=== PATIENT | male | born 1940 | race Caucasian/White ===

== ENCOUNTER 2016-09-05 12:42 | Emergency (ER) | payer MEDICARE, BC ==
[~2016-09-05] VITALS: Ht 179.1 cm; Wt 92.4 kg
[~2016-09-05 12:42] MED LIST: ASPI81TA11 PO; ATEN-100 PO; ATOR20TA42 PO; AVOD0.5C PO; CIAL5TAB PO; COQ1200C3 PO; NIAC500T34 PO; NITR.3 SL; SALMON OIL PO; TAB-TAB PO; TAMS0.4C67 PO
[2016-09-05 12:56] VITALS: BP 122/70; PULSE 68; RESP 16; TEMP 98.3; O2SAT 97
[2016-09-05] MEDS ORDERED: MULT400T PO (13:06)
[2016-09-05] MEDS ORDERED: FINA5TAB2 PO (13:06)
[2016-09-05] MEDS ORDERED: TAMS0.4C4 PO (13:06)
[2016-09-05] MEDS ORDERED: TETANUS/DIPHTHERIA TOXOID ADULT 0.5 ML VIAL IM ONE (13:15)
--- NOTE | 2016-09-05 13:37 | PD ---
HPI Chief Complaint: Laceration/Skin Injury Time Seen by Provider: 13:37 Travel History International Travel<30 days: No Contact w/Intl Traveler<30days: No Traveled to known affect area: No History of Present Illness HPI 76-year-old right-hand dominant male presents to the ED for evaluation of laceration of the right hand. Sustained just before presentation. 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 On presentation he endorses 4/10 pain , mild numbness and limitations to range of motion. He is unsure of the date of his last tetanus immunization. He takes 2 baby aspirin daily. PFSH Past Medical History Hx Anticoagulant Therapy: Yes (162mg asa) Blood Disorders: No Cancer: No Cardiovascular Problems: Yes (a-fib, NM) High Cholesterol: Yes Chest Pain: Yes Congestive Heart Failure: No Coronary Artery Disease: Yes Diabetes: No Endocrine: No Genitourinary: Yes (BPH) Hepatitis: No Hiatal Hernia: No Immune Disorder: No Medical other: Yes (bph arthritis) Neurologic: No Psychiatric: No Respiratory: No Thyroid Disease: No Past Surgical History Abdominal Surgery: No Cardiac Surgery: Yes (single by-pass 2000) Coronary Artery Bypass Graft: Yes (X 1) Ear Surgery: No Endocrine Surgery: No Eye Surgery: No Genitourinary Surgery: Yes (LITHOTRIPSY OF RENAL CALCULI) Gynecologic Surgery: No Oral Surgery: Yes (tonsillectomy) Pacemaker: No Thoracic Surgery: No Tonsillectomy: Yes Other Surgery: Yes Social History Alcohol Use: Yes (OCCASIONAL) Tobacco Use: No Substance Use: No Allergies-Medications (Allergen,Severity, Reaction): Coded Allergies: Morphine (Verified Allergy, Severe, Anaphylaxis, 09/05/16) Reported Meds & Prescriptions Reported Meds & Active Scripts Active Clindamycin (Clindamycin HCl) 300 Mg Cap 300 Mg PO Q6H 7 Days Reported Tamsulosin (Tamsulosin HCl) 0.4 Mg Cap Unknown Dose PO HS Finasteride 5 Mg Tab Unknown Dose PO DAILY Do not crush. Multaq (Dronedarone) 400 Mg Tab Unknown Dose PO BID Review of Systems Except as stated in HPI: all other systems reviewed are Neg Physical Exam Narrative GENERAL: Well-nourished, well-developed pleasant white male in no acute distress. SKIN: Focused skin assessment warm/dry. There is a 5 cm laceration over the posterior aspect of the right thumb, just distal to the metacarpal. The carpometacarpal joint is visible. There is complete transection of the extensor pollicis longus. The extensor pollicis brevis is intact. The radial artery is intact. Unable to identify the superficial branch of the radial nerve. HEAD: Normocephalic. EYES: No scleral icterus. No injection or drainage. NECK: Supple, trachea midline. No JVD or lymphadenopathy. CARDIOVASCULAR: Regular rate and rhythm without murmurs, gallops, or rubs. RESPIRATORY: Breath sounds equal bilaterally. No accessory muscle use. GASTROINTESTINAL: Abdomen soft, non-tender, nondistended. MUSCULOSKELETAL: No cyanosis, or edema. Focused right upper extremity exam: 2+ radial pulse. The thumb is resting in flexion. Patient is able to oppose each digit strongly. He is unable to extend the thumb. Cap refill less than 2 seconds, sensation intact to light touch distally. BACK: Nontender without obvious deformity. No CVA tenderness. Data Data Last Documented VS Vital Signs Date Time Temp Pulse Resp B/P Pulse Ox O2 Delivery O2 Flow Rate FiO2 09/05/16 16:23 98.1 64 18 169/95 98 Room Air Orders Tetanus/Diphtheria Tox Adult (Tetanus/Di (09/05/16 13:15) Finger ([id number]) (09/05/16 13:14) Ice/Cold Pack (09/05/16 13:14) Lidocaine 1% Inj (50 Ml) (Xylocaine 1% I (09/05/16 13:45) Oxycodone-Acetamin 5-325 Mg (Percocet (09/05/16 13:45) Cefazolin 2 Gm Premix (Ancef 2 Gm Premix (09/05/16 14:15) Sodium Chlorid 0.9% 500 Ml Inj (Ns 500 M (09/05/16 14:15) Bupivacaine-Epi Pf 0.5% Inj (Sensorcaine (09/05/16 15:00) Povidone Iodine 10% Oint (Betadine 10% O (09/05/16 18:15) MDM Medical Decision Making Medical Screen Exam Complete: Yes Emergency Medical Condition: Yes Differential Diagnosis laceration versus tendon injury versus fracture versus other Narrative Course 76-year-old right-hand dominant male presents to the ED for evaluation of laceration of the right hand. Sustained just before presentation. 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 On presentation he endorses 4/10 pain , mild numbness and limitations to range of motion. He is unsure of the date of his last tetanus immunization. Vitals reviewed. Physical exam reveals a pleasant white male in no acute distress. The thumb is resting of flexion. The patient is unable to extend the thumb. He has strong finger to thumb opposition on each digit. Cap refill less than 2 seconds. Sensation intact to light touch distally. There is a 5 cm laceration on the posterior aspect of the CMC joint of the right thumb. The MC joint is visible. There is complete transection of extensor pollicis longus. X-rays revealed advanced osteoarthritis without acute fracture or retained foreign body per radiology read. Laceration repair was performed. Please see my procedure note for details. I spoke with Dr. Adkins, on-call hand surgeon. He will come to the ED to perform the tendon repair. He requests that I administer 5-6 mL's of 0.5 % Marcaine with epinephrine in preparation for this procedure. Surgical consent was obtained. Dr. Adkins performed the procedure and applied the dressing/splint, please see his note for those details. Patient was prescribed 300 mg clindamycin 4 times a day 7 days. He is instructed to keep the arm in the splint, take the medication as prescribed, utilize OTC medications as needed for pain, follow-up with Dr. Adkins. He indicated understanding of the instructions and is agreeable to the care plan. He is stable and discharged home. Procedures Procedure Narrative LACERATION LOCATION: Dorsal aspect of the right thumb, just distal to the metacarpal. LENGTH: 5 cm NUMBER OF STITCHES/DENNIS: 6 horizontal mattress REPAIR: The area of the laceration was prepped with Betadine and sterilely draped. The laceration was infiltrated with 1% lidocaine. The wound was copiously irrigated and explored without evidence of foreign body. The CMC joint is visible. The extensor pollicis longus is completely transected in a transverse manner. The extensor pollicis brevis is intact. Unable to identify the superficial branch of the radial nerve. The wound was closed using 4-0 Prolene. This was a single layer repair. A sterile dressing was applied. The patient was advised to keep the dressing clean and dry. Patient tolerated the procedure well. Diagnosis Primary Impression: Laceration of thumb, right, with tendon involvement Qualified Code: S61.011A - Laceration of thumb, right, with tendon involvement , initial encounter Referrals: Katie Adkins MD Patient Instructions: General Instructions, Tendon Repair (DC) Additional Instructions: Rest, ice, elevate the extremity. Apply ice no longer than 10-15 minutes per hour a few times a day. Do not remove the splint for any reason. Take antibiotics as prescribed. Tylenol or Motrin as directed on the label as needed for pain. Follow up with Dr. Adkins as instructed. Return to the ED for any urgent or emergent medical condition. Med/Other Pt SpecificInfo: Prescription(s) given Scripts Clindamycin 300 Mg Hyh139 Mg PO Q6H 7 Days Ref 0 Prov:Giovanni Rangel MD 09/05/16 Disposition: 01 DISCHARGE HOME Condition: Stable Cheri Evans Sep 05, 2016 13:37
[2016-09-05] MEDS ORDERED: LIDOCAINE HCL 1% 50 ML VIAL INFIL ONE (13:45)
[2016-09-05] MEDS ORDERED: oxyCODONE/ACETAMINOPHEN 5 MG/325 MG TAB PO ONE (13:45)
--- NOTE | 2016-09-05 14:14 | RADHPO ---
EXAM DATE/TIME: 09/05/2016 13:32 [facility] COMPARISON: No previous studies available for comparison. INDICATIONS : Right posterior 1st digit laceration from precision grinder. MEDICAL HISTORY : None. SURGICAL HISTORY : None. ENCOUNTER: Initial ACUITY: 1 day PAIN SCORE: 9/10 LOCATION: Right posterior 1st digit. FINDINGS: The examination demonstrates advanced osteoarthritic changes in the metacarpal phalangeal joint at th e base of the palm, the distal interphalangeal joints of the first second and third digits as well as the metacarpal phalangeal joints of the second, third and fourth digits. No acute fractures seen. No retained foreign body is evident. CONCLUSION: 1. Advanced osteoarthritic changes. No acute fracture or retained foreign body identified. Giovanni Lovell MD on September 05, 2016 at 14:09 Board Certified Radiologist. This report was verified electronically.
[2016-09-05] MEDS ORDERED: ceFAZolin 2 GM PREMIX 50 ML IV ONE (14:15)
[2016-09-05] MEDS ORDERED: SODIUM CHLORID 0.9% 500 ML INJ 500 ML IV ONE (14:15)
[2016-09-05] MEDS ORDERED: BUPIVACAINE/EPINEPHRINE 0.5% PF 30 ML VIAL INFIL ONE (15:00)
[2016-09-05 16:23] VITALS: BP 169/95; PULSE 64; RESP 18; TEMP 98.1; O2SAT 98
[2016-09-05] MEDS ORDERED: CLIN1CAP6 PO (18:05)
[2016-09-05] MEDS ORDERED: POVIDONE IODINE 10% OINT 30 GM TUBE TOPICAL ONE (18:15)
--- NOTE | 2016-09-07 07:09 | MB ---
cc: KEN SHEFFIELD M.D. DATE OF CONSULTATION 09/05/2016 REFERRING PHYSICIAN This patient is being seen at the request of Dr. Giovanni Rangel. REASON FOR CONSULTATION Injury to the right upper extremity. 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 It jumped out of his hand, flipped in the air and struck him on the dorsal aspect of his right hand. The patient sustained an injury which was evaluated in the emergency room. It was noted that he did have injury to some of the extensor tendons of his right hand at the wrist including his extensor pollicis longus. Consultation is requested regarding evaluation and treatment of this injury. PAST MEDICAL HISTORY 1. The patient is on two baby aspirin a day. 2. He has history of her a fib and CT and a myocardial Infarction. 3. He has a history of hypercholesterolemia. 4. Chest pain 5. Coronary artery disease 6. BPH 7. Some additional arthritis. PAST SURGICAL HISTORY Surgical history includes: 1. A single bypass in 2000 2. Lithotripsy 3. Tonsillectomy SOCIAL HISTORY The patient occasionally consumes alcohol. He denies tobacco use. ALLERGIES MORPHINE MEDICATIONS Medications are listed on the chart. REVIEW OF SYSTEMS A 10 system review is negative in detail except as noted above. PHYSICAL EXAM On examination, the patient is sitting comfortably on a stretcher. VITAL SIGNS: Temperature is 98.1, pulse 64, respirations 18, blood pressure is 169/95, pulse oximetry is 98 on room air. HEAD, EYES, EARS, NOSE, AND THROAT: The patients extraocular muscles are intact. His pupils are equal, round, and reactive to light. His mouth is clear. NECK: His neck is supple without masses. LUNGS: His lungs are clear. HEART: His heart has a is regular rate and rhythm. EXTREMITIES: Examination of his upper extremities reveals a 4.5 cm transverse laceration on the dorsal aspect of his right wrist. This appears to be on the way radial side. Further examination of the wound reveals a complete laceration of the extensor pollicis longus and a partial laceration of the extensor carpi radialis longus. There appears to be a small branch of the superficial branch of the radial nerve which may be injured. REVIEW OF THE X-RAYS The x-rays are reviewed and reveal advanced osteoarthritic changes at the CMC joint, but no foreign bodies or acute fractures noted. IMPRESSION Open wound of the right upper extremity with tendon injury and possible nerve injury. PLAN The wound will be explored in the emergency room. The patient is advised that if we are unable to repair the structures in the emergency room, then we will take him to the operating room for definitive repair. He understands and accepts the risks and complications of the surgery. MD ADELITA Rosenthal/NATALY /4:32 PM /7:02 AM
[2016-09-07] MEDS ORDERED: ROSU20 PO (09:26)
[2016-09-07] MEDS ORDERED: ZETI10TA5 PO (09:26)
[2016-09-07] MEDS ORDERED: ASPI81CH CHEW (09:30)
[2016-09-07] MEDS ORDERED: IBUP800T23 PO (15:32)
--- NOTE | 2016-09-09 20:13 | MP ---
cc: KEN SHEFFIELD M.D. DATE OF SURGERY: 09/06/2016. PREOPERATIVE DIAGNOSIS: Injury to the right upper extremity with a laceration over the dorsal wrist. POSTOPERATIVE DIAGNOSIS: 1. Lacerated extensor pollicis longus. 2. Partial laceration to the extensor carpi radialis longus. 3. Injury to a superficial branch of the radial nerve. OPERATIVE PROCEDURE PERFORMED: 1. Exploration of the wound. 2. Debridement and complex closure of the wound. SURGEON: Ken Sheffield M.D. PATENT DRAFTER: Cira Sam PA-C. ANESTHESIA: Local. INDICATIONS FOR THE PROCEDURE: 76-year-old male who injured his hand with a wheel grinder which slipped out of his hands, flipped over and cut the back of his wrist. FINDINGS: The proximal end of the extensor carpi radialis longus was not retrievable and they did appear to be a superficial branch of the radial nerve that was lacerated; also there was partial laceration of the extensor carpi radialis longus at the insertion at the base of the index metacarpal. OPERATIVE TIME: Operative time was 45 minutes. DESCRIPTION OF THE PROCEDURE IN DETAIL: The patient was seen in the emergency room. He was in a supine position. A time out was called by the circulating nurse. The wound had previously been infiltrated with bupivacaine 0.5% with epinephrine 1:200,000. Additional anesthetic was placed for a total of approximately 18 mL. The wound was copiously irrigated with saline. The distal end of the extensor pollicis longus was seen in the wound and the proximal end was searched for within the compartments. It was not visualized. The patient was asked to extend his thumb and there was still no visualization of the proximal end. We spent approximately 20 to 25 minutes looking for the tendon. The wound was then debrided sharply by excising the edges and then again irrigated and closed with a running 4-0 Prolene suture. The wound was then covered with Betadine soaked gauze, Telfa, 4x4's, Aldair and a thumb spica splint to keep the thumb in extension. The patient was then given back to the care of the ER staff and arrangements were to be made for definitive repair in the operating room later in the week. The patient understood and accepted the treatment plan and tolerated the procedure well. The estimated blood loss was approximately 25 mL. MD ADELITA Rosenthal/DOM /4:36 PM /8:06 PM
== END 2016-09-05 18:39 | disposition home or self-care (01) ==
LOC: PHEFT 12:42
DX: S66.021A Laceration of long flexor muscle, fascia and tendon of right thumb at wrist and hand level, initial encounter (principal); E78.00 Pure hypercholesterolemia, unspecified; R20.0 Anesthesia of skin; I48.91 Unspecified atrial fibrillation; W29.8XXA Contact with other powered hand tools and household machinery, initial encounter; Y93.H2 Activity, gardening and landscaping; Z79.01 Long term (current) use of anticoagulants; Z23 Encounter for immunization
CPT/HCPCS: 12032; 73140; 90471; 90714; 96361; 96365; 99283; J0690; J7040

== ENCOUNTER → 2016-09-07 | Day surgery (SDC) | payer MEDICARE, BC ==
[~2016-09-07] VITALS: Ht 180.3 cm; Wt 91.0 kg
[~2016-09-07] MED LIST changes: +ACETAMINOPHEN 1000 MG/100 ML VIAL IV ONE; +ASPI81CH CHEW; -ASPI81TA11 PO; -ATEN-100 PO; -ATOR20TA42 PO; -AVOD0.5C PO; +BUPIVACAINE HCL PF 0.5% 30 ML VIAL ONE; -CIAL5TAB PO; +CLIN1CAP6 PO; -COQ1200C3 PO; +DEXAMETHASONE SOD PHOS 4 MG/ML VIAL ONE; +DEXT 5%-NACL 0.45% 1000 ML INJ 1,000 ML IV SCH; +FAMOTIDINE 20 MG/2 ML VIAL ONE; +FINA5TAB2 PO; +IBUP800T23 PO; +LACTATED RINGER'S 1000 ML INJ 1,000 ML ONE; +LACTATED RINGER'S 1000 ML INJ 2,000 ML IV ONE; +MIDAZOLAM HCL 2 MG/2 ML VIAL ONE; +MULT400T PO; -NIAC500T34 PO; -NITR.3 SL; +PROPOFOL 200 MG/20 ML AMP IV ONE; +ROSU20 PO; -SALMON OIL PO; +SODIUM CHLORIDE 0.9% FLUSH 5 ML FLUSH IVF PRN; +SODIUM CHLORIDE 0.9% FLUSH 5 ML FLUSH IVF SCH; -TAB-TAB PO; +TAMS0.4C4 PO; -TAMS0.4C67 PO; +ZETI10TA5 PO; +ceFAZolin 2 GM PREMIX 50 ML ONE
[2016-09-07 09:36] VITALS: BP 132/76; PULSE 62; RESP 20; TEMP 98.4; O2SAT 97
[2016-09-07 09:50] LABS: HEMATOCRIT 43.4 % (39.0-51.0); MEAN CORPUSCULAR HEMOGLOBIN 29.1 PG (27.0-34.0); MEAN CORPUSCULAR HGB CONC 33.1 % (32.0-36.0); PLATELET COUNT 175 TH/MM3 (150-450); RED BLOOD COUNT 4.94 MIL/MM3 (4.50-5.90); RED CELL DISTRIBUTION WIDTH 14.1 % (11.6-17.2); REVIEW FLAG FINAL; WHITE BLOOD COUNT 8.7 TH/MM3 (4.0-11.0)
--- NOTE | 2016-09-07 11:07 | HP.UPD ---
H&P Update Date: Sep 07, 2016 Note The Pre-Admit History and Physical Examination regarding the above named patient was reviewed (including, but not limited to, vital signs, medications, allergies, co-morbid conditions), and upon re-examination it is noted that: Indicated with "X" x - the patient's condition has not significantly changed since the last examination. [] - the patient's condition has changed since the last examination. Changes: Katie Adkins MD Sep 07, 2016 11:07
--- NOTE | 2016-09-07 15:34 | HHI.PR ---
Immediate Post Op Note Procedure Date: Sep 07, 2016 Pre Op Diagnosis: (1) Laceration of thumb, right, with tendon involvement Post Op Diagnosis: (1) Laceration of thumb, right, with tendon involvement Surgeon: Katie Adkins [employer] Officer(s): None Procedure: Repair EPL, EPB and ECRL right wrist. Anesthesia: General Drains: None Tourniquet time (min at mmHg) 60 minutes at 220 mm Hg Patient to: PACU Patient Condition: Good Date/Time of Procedure: SEE SURGICAL CARE RECORD Katie Adkins MD Sep 07, 2016 15:34
[2016-09-07 16:35] VITALS: BP 129/80; PULSE 56; RESP 16; TEMP 97.7; O2SAT 95
--- NOTE | 2016-09-08 14:45 | EKG ---
Date Performed: 09/07/2016 Time Performed: 10:20:24 PTAGE: 76 years EKG: Sinus bradycardia with interpolated PVC(s) with 1st degree A-V block. Left axis deviation E xtensive infarct - age undetermined Generalized low QRS voltages Compared to prior tracing no signifi cant change Abnormal ECG PREVIOUS TRACING : 09/11/2011 00.44 DOCTOR: Wilbert Delatorre Interpretating Date/Time 09/08/2016 14:42:07
--- NOTE | 2016-09-10 12:35 | MP ---
cc: KEN SHEFFIELD M.D. DATE OF SURGERY: 09/07/2016 PREOPERATIVE DIAGNOSIS Laceration of right wrist with tendon involvement. POSTOPERATIVE DIAGNOSIS Laceration of right wrist with tendon involvement. PROCEDURE 1. Repair of the right extensor pollicis longus. 2. Repair of the right extensor pollicis brevis. 3. Repair of the right extensor carpi radialis longus. ANESTHESIA General. SURGEON Ken Sheffield MD INDICATIONS A 76-year-old male who injured his hand with a roll grinder 48 hours ago. FINDINGS At the completion of the procedure the tendons were repaired. The remainder of the structures visualized were not injured. TOURNIQUET TIME 60 minutes. PROCEDURE The patient was seen preoperatively where the site and side were identified and marked. The patient was then taken to the operating room, placed in the supine position. His identity was checked against the arm band and the consent form. Site and side confirmed, time-out called prior to beginning the procedure. The right upper extremity was prepped with Hibiclens and draped in usual sterile fashion. The arm was exsanguinated and tourniquet inflated to 220 mmHg. The sutures which had been placed were removed. The wound was irrigated with saline. The wound was explored and the lacerated tendons were noted as above. The insertion of the extensor carpi radialis longus was cut down to bone. The tendon was still attached but had retracted slightly. The proximal end of the extensor pollicis longus was not visualized and a separate incision was designed over the third dorsal compartment of the area of Laurel's tubercle. But first the tendons which were visible were debrided. This included the extensor carpi radialis longus, the extensor pollicis brevis both ends which were visualized and the distal end of the extensor pollicis longus. Sutures were placed in the modified Angelo suture with locking loops and then an incision was made obliquely over the third dorsal compartment in the area of Laurel's tubercle down through the skin and down to the subcutaneous tissue. Under loupe magnification the third dorsal compartment was identified, it was opened, the tendon was identified. It was debrided and a stitch was placed into the tendon. It was then passed distally into the wound and the entire area was infiltrated with bupivacaine 0.5% plain and the tendons were sequentially repaired. First extensor pollicis brevis was repaired and the extensor pollicis longus and then the extensor carpi radialis longus. The edges of the wound were then approximated with 4-0 Vicryl to the deep dermal layer and 4-0 Nylon to the skin. After 60 minutes the tourniquet was released. Pressure was applied after several minutes and there was no evidence of any oozing and a dressing was applied using povidone-iodine ointment, Adaptic Telfa, 4x4s, hand wrap, cast padding and a thumb spica splint. The patient was then taken from the operating room to the recovery room in satisfactory condition having tolerated the procedure well. Postoperative instructions include keeping the arm elevated, keeping it clean and dry and returning next week for follow up. MD ADELITA Rosenthal/ANDRES /3:37 PM /12:24 PM
== END | disposition home or self-care (01) ==
LOC: PHSDC 08:41
PROVIDERS: ATTEND Specialist
DX: S66.221A Laceration of extensor muscle, fascia and tendon of right thumb at wrist and hand level, initial encounter (principal); I48.91 Unspecified atrial fibrillation; W31.1XXA Contact with metalworking machines, initial encounter
CPT/HCPCS: 01810; 25270; 36415; 85027; 93005; J0131; J0690; J1100; J2250; J3010; J7120

== ENCOUNTER → 2017-06-10 | Outpatient (CLI) | payer BC, MEDICARE ==
[~2017-06-10] MED LIST changes: -ACETAMINOPHEN 1000 MG/100 ML VIAL IV ONE; +ASPI-516 CHEW; -ASPI81CH CHEW; -BUPIVACAINE HCL PF 0.5% 30 ML VIAL ONE; -CLIN1CAP6 PO; +CLIN300C5 PO; +COQ-100C5 PO; -DEXAMETHASONE SOD PHOS 4 MG/ML VIAL ONE; -DEXT 5%-NACL 0.45% 1000 ML INJ 1,000 ML IV SCH; +EZET10 PO; -FAMOTIDINE 20 MG/2 ML VIAL ONE; +FISH100020 PO; +GARL1000 PO; +IBUP1TAB7 PO; -IBUP800T23 PO; -LACTATED RINGER'S 1000 ML INJ 1,000 ML ONE; -LACTATED RINGER'S 1000 ML INJ 2,000 ML IV ONE; -MIDAZOLAM HCL 2 MG/2 ML VIAL ONE; +MULTTAB67 PO; +NIAC500T5 PO; -PROPOFOL 200 MG/20 ML AMP IV ONE; +ROSU10 PO; +SACC1CAP3 PO; -SODIUM CHLORIDE 0.9% FLUSH 5 ML FLUSH IVF PRN; -SODIUM CHLORIDE 0.9% FLUSH 5 ML FLUSH IVF SCH; -ZETI10TA5 PO; +[UNRECOGNIZED DRUG - CODE] PO; -ceFAZolin 2 GM PREMIX 50 ML ONE
[2017-06-10 08:50] LABS: AUTOMATED NEUTROPHIL # 5.6 TH/MM3 (1.8-7.7); BASOPHIL # 0.1 TH/MM3 (0-0.2); BASOPHIL % 0.8 % (0.0-2.0); EOSINOPHIL # 0.4 TH/MM3 (0-0.4); EOSINOPHIL % 5.3 % (0.0-4.0); HEMATOCRIT 42.5 % (39.0-51.0); HEMOGLOBIN 14.2 GM/DL (13.0-17.0); LYMPH % 14.2 % (9.0-44.0); LYMPHOCYTE # 1.1 TH/MM3 (1.0-4.8); MEAN CELL VOLUME 89.1 FL (80.0-100.0); MEAN CORPUSCULAR HEMOGLOBIN 29.7 PG (27.0-34.0); MEAN CORPUSCULAR HGB CONC 33.3 % (32.0-36.0); MONOCYTE # 0.7 TH/MM3 (0-0.9); NEUT % 70.7 % (16.0-70.0); PLATELET COUNT 167 TH/MM3 (150-450); RED BLOOD COUNT 4.77 MIL/MM3 (4.50-5.90); RED CELL DISTRIBUTION WIDTH 14.1 % (11.6-17.2); WHITE BLOOD COUNT 7.9 TH/MM3 (4.0-11.0)
[2017-06-10 09:00] LABS: BILIRUBIN, URINE NEG (NEG); BLOOD, URINE NEG (NEG); GLUCOSE,URINE NEG (NEG); KETONE, URINE NEG (NEG); MUCUS URINE FEW /lpf (OCC); NITRITE,URINE NEG (NEG); PH, URINE 5.5 (5.0-8.5); SQUAMOUS EPITHELIAL CELL URINE <1 /hpf (0-5); URINE COLOR YELLOW (YELLW/STRAW); URINE LEUKOCYTE ESTERASE NEG (NEG)
[2017-06-10 09:15] LABS: BICARBONATE 29.8 MEQ/L (21.0-32.0); CALCIUM 8.3 MG/DL (8.5-10.1); CREATININE 1.06 MG/DL (0.60-1.30)
--- NOTE | 2017-06-10 09:51 | RADRPT ---
EXAM DATE/TIME: 06/10/2017 09:30 [facility] COMPARISON: No previous studies available for comparison. INDICATIONS : Evaluate for pneumonia, pneumothorax or communicable diseases. Pre-op left knee surgery. MEDICAL HISTORY : None. SURGICAL HISTORY : CABG. ENCOUNTER: Initial ACUITY: 1 day PAIN SCORE: 0/10 LOCATION: Bilateral chest FINDINGS: PA and lateral views of the chest demonstrate the lungs to be symmetrically aerated without evidence of mass, infiltrate or effusion. Sternal wires from previous bypass noted. The cardiomediastinal co ntours are unremarkable. Osseous structures are intact. CONCLUSION: Negative for acute process. Greg Lovell MD FACR on June 10, 2017 at 9:47 Board Certified Radiologist. This report was verified electronically.
--- NOTE | 2017-06-10 18:54 | EKG ---
Date Performed: 06/10/2017 Time Performed: 08:50:14 PTAGE: 77 years EKG: Possible ectopic atrial rhythm with PAC(s) Left axis deviation Extensive infarct - age unde termined Low QRS voltages in precordial leads Abnormal ECG PREVIOUS TRACING : 09/07/2016 10.20 Compared to prior tracing no significant change DOCTOR: Ammy Pantoja Interpretating Date/Time 06/10/2017 18:54:26
== END ==
LOC: CPRE 08:13
PROVIDERS: ATTEND Orthopaedic Surgery
DX: Z01.812 Encounter for preprocedural laboratory examination (principal); Z01.811 Encounter for preprocedural respiratory examination; Z01.810 Encounter for preprocedural cardiovascular examination; M17.12 Unilateral primary osteoarthritis, left knee; R94.31 Abnormal electrocardiogram [ECG] [EKG]
CPT/HCPCS: 36415; 71046; 80048; 81001; 85025; 85610; 93005

== ENCOUNTER 2017-06-19 09:30 | Inpatient (IN) | payer MEDICARE, BC ==
--- NOTE | 2017-06-16 10:03 | MH ---
cc: ROZ DUFFY DATE OF ADMISSION: 06/19/2017 ADMISSION DIAGNOSIS Osteoarthritis left knee, varus deformity left knee, pain left knee, gait disturbance. HISTORY OF PRESENT ILLNESS The patient is a 77-year-old white male who has had a rather lengthy history of pain involving his left knee, dating back to approximately 2011 when the patient experienced the onset of discomfort about his left knee secondary to household activity which included painting and standing on a scaffold and ladder for extended periods of time. He was subsequently diagnosed as having a medial meniscus tear of his left knee for which he underwent arthroscopic surgery in September of 2011. The patient was noted to have tolerated his operative procedure well and his postoperative course was stable thereafter. He had done reasonably well for the following few years until he returned to the office in January of 2016 and at that time he reported that he was beginning to experience soreness about his left knee, especially with bending and twisting type motion. He had remained ambulatory throughout this interval of time and had been able to conform to his daily routine in a reasonably comfortable manner. He had been taking aspirin on a daily basis. His x-ray studies at that time did reveal obvious degenerative changes with pronounced narrowing about the medial compartment and secondary involvement of the patellofemoral articulation. Findings and treatment options were reviewed. The patient was initiated a course of ibuprofen as well as utilizing Aspercreme or Biofreeze and continuing to exercise under his own supervision while being followed on an outpatient basis. He returned to the office in April of this past year indicating that he was becoming progressively more symptomatic with pain with a frequent grinding sensation for which he had discontinued use of anti-inflammatory medication on a regular basis due to his concerns regarding potential adverse side effect from long-term use. His x-ray studies revealed obvious degenerative change with [id number] apposition about the medial compartment associated with a varus deformity of at least 5 to 8 degrees magnitude. Findings and treatment options were reviewed with the patient at that time. The pros and cons of continuing with conservative management versus operative intervention that would involve a total knee arthroplasty were outlined in detail. Emphasis was made regarding the fact that the decision to proceed with surgery would be left entirely to the patient's discretion. He considered his options in this regard and returned to the office and more recent follow-up indicating that he was becoming progressively more symptomatic with pain and given his ongoing symptoms he did indicate his desire to proceed with surgery as had previously been discussed. In compliance with his wishes he was scheduled for admission at this time in order that left total knee arthroplasty be accomplished. PAST MEDICAL HISTORY/HOSPITALIZATIONS AND SURGERIES In addition to the arthroscopic surgery referenced above have included: 1. Cardiac bypass surgery. 2. Tonsillectomy. 3. Lithotripsy. 4. Repair of a traumatic laceration of his right hand with tendon repair. 5. Excision of basal cell carcinoma of the right shoulder. 6. Medical management for a suspected myocardial infarction. MEDICAL ILLNESS 1. Elevated cholesterol. 2. Benign prostatic hypertrophy. MEDICATIONS Current medications: 1. Crestor 10 mg daily. 2. Zetia 10 mg daily. 3. Tamsulosin 0.4 mg daily. 4. Avodart 5 mg daily. 5. Multaq 400 mg twice daily. 6. 81 mg aspirin tablet daily. 7. Multivitamin tablet daily. 8. Fish oil 1000 mg twice daily. 9. Ginseng 100 mg daily. 10. Niacin 500 mg daily. 11. Garlic 1000 mg daily. 12. Co-Q 10; 100 mg every other day. 13. Probiotic every other day. ALLERGIES The patient indicates a possible drug allergy to MORPHINE WHICH HAS BEEN ASSOCIATED WITH NAUSEA AND VOMITING. REVIEW OF SYSTEMS He does wear glasses. No headache, seizure or syncope. No sinus congestion or epistaxis. Diminished auditory acuity. No tinnitus. No bleeding gums or dysphagia. No cough, shortness of breath, upper respiratory infection, pneumonia or tuberculosis. No angina. He is status post cardiac bypass surgery. Appetite good, bowel movements regular. No hepatitis, gallbladder disease, ulcers or hemorrhoids. There is occasional difficulty with urination as related to prostate disease. There is a positive history for kidney stones and large prostate. No history of fractures. No psychiatric illness. Remaining review of systems unremarkable and noncontributory. FAMILY HISTORY 53 years, is 71 years of age, indicated to be in good health. One son and one daughter. His son with a history of insulin-dependent diabetes. Family history is positive for diabetes, heart disease, lymphoma and leukemia. 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 He completed a high school education with additional post graduate training thereafter. Denies active use of tobacco, ethanol consumption on a social basis. PHYSICAL EXAMINATION Height 5 feet 10 inches, weight 207 pounds. GENERAL: An alert, oriented and responsive 77-year-old white male who sits quietly upon the examination table with no apparent distress. HEENT: Pupils are equally round and reactive to light. Extraocular movements full. Sclerae are clear. External nares clear. External auditory canals clear. Dental intact. Mucous membranes pink and moist. Pharynx clear. NECK: Supple. Active range of motion. No associated pain. Carotid pulse palpable bilaterally. Trachea midline. Thyroid without enlargement. LUNGS: Clear to auscultation and percussion. No CVA tenderness. No discomfort throughout the dorsal lumbar spine. HEART: Regular rhythm. No murmur or gallop. ABDOMEN: Soft, nontender. Bowel sounds present. RECTAL: Per primary care physician. EXTREMITIES: Left knee no appreciable swelling or effusion. There is varus deformity with medial joint line tenderness. Apprehension and compression sign negative. Limited mobility at the extreme of flexion without significant crepitation associated, no collateral ligamentous laxity. Zach test and drawer sign negative. Pivot shift and Donato sign positive for medial compartment pain. Straight-leg raising unremarkable at 80 degrees. Distal sensory grossly intact. Mild antalgic gait. NEUROLOGIC: Cranial nerves II-XII grossly intact. IMPRESSION Osteoarthritis of the left knee, varus deformity left knee, pain left knee, gait disturbance. PLAN Left total knee arthroplasty. The nature of the planned surgical procedure, the potential complications and risks associated, the expectations of surgery and the consent form were thoroughly reviewed with the patient in the presence of his prior to admission to the hospital. Mr. Topete has indicated his full understanding regarding all of the above and given consent to proceed with treatment as outlined. Medical evaluation and clearance for surgery will be completed by his primary care physician Dr. Shakira Maddox, cardiology clearance per Dr. Delatorre. MD ADELE Elliott/TLL /8:42 AM /9:34 AM
[~2017-06-19] VITALS: Ht 180.3 cm; Wt 91.4 kg
[~2017-06-19 09:30] MED LIST changes: -CLIN300C5 PO; -IBUP1TAB7 PO; -ROSU20 PO
--- NOTE | 2017-08-09 14:09 | MH ---
cc: David Hummel MD DATE OF ADMISSION: 08/14/2017 ADMITTING DIAGNOSIS: Osteoarthritis of the left knee. Varus deformity left knee. Pain left knee and gait disturbance. HISTORY: A 77-year-old white male with a lengthy history of pain involving his left knee extending back to at least 2011 when the patient experienced the onset of discomfort about the knee secondary to household activity which included painting and standing on a scaffold ladder for an extended period of time. He was subsequently diagnosed as having a medial meniscus tear of the left knee for which he underwent arthroscopic surgery in September of 2011. He was noted to have tolerated his operative procedure well and his postoperative course was stable thereafter. He had done reasonably well over the following few years until he returned to the office in 01/2016 at which time he reported that he was beginning to experience a soreness about the left knee especially with bending and twisting type motion. He had remained ambulatory throughout this interval of time and had been able to conform to his daily routine in a reasonably comfortable manner. He had also been taking aspirin on a daily basis. His x-ray studies at that time did reveal obvious degenerative changes with pronounced narrowing about the medial compartment and secondary involvement of the patellofemoral articulation. Findings and treatment options were reviewed with the patient. He was initiated into a course of ibuprofen as well as trying Aspercreme versus Biofreeze and continuing to exercise under his own supervision while being followed on an outpatient basis. He returned to the office in April of this past year indicating that he was becoming progressively more symptomatic with pain associated with a frequent grinding sensation for which he had discontinued use of anti-inflammatory medication on a regular basis due to his personal concerns regarding potential adverse side effects from long-term use. His more current x-ray studies revealed obvious degenerative change with qbau-dp-[id number] apposition about the medial compartment associated with a varus deformity of almost 8 degrees magnitude. Findings and treatment options were again reviewed. The pros and cons of continuing with further conservative management versus operative intervention that would involve a total knee arthroplasty were outlined. Emphasis was made regarding the fact that the decision to proceed with surgery would be left entirely to the patient's discretion. The patient considered his options in this regard and returned to the office in more recent follow up indicating that he was becoming progressively more symptomatic with pain and given his ongoing symptoms and associated limitations, he was desirous of proceeding with surgery as had previously been discussed. In compliance with his wishes, he was scheduled for admission at this time in order that total knee arthroplasty be completed. PAST MEDICAL HISTORY: Hospitalizations and surgeries including: arthroscopic surgery as noted, cardiac bypass surgery, tonsillectomy, lithotripsy, repair of a traumatic laceration of the right hand with tendon repair, excision of a basal cell carcinoma of the right shoulder, and medical management for a suspected myocardial infarction. His medical illnesses include elevated cholesterol and benign prostatic hypertrophy. CURRENT MEDICATIONS: 1. Crestor 10 mg daily. 2. Zetia 10 mg daily. 3. Tamsulosin 0.4 mg daily. 4. Avodart 5 mg daily. 5. Multaq 400 mg twice a day. 6. 81 mg aspirin tablet daily. 7. Multivitamin tablet daily. 8. Fish oil 1000 mg twice a day. 9. Ginseng 100 mg daily. 10. Niacin 500 mg daily. 11. Garlic 1000 mg daily. 12. Co-Q10 100 mg every other day. 13. Probiotic every other day. ALLERGIES: THE PATIENT INDICATES A POSSIBLE DRUG ALLERGY TO MORPHINE WHICH HAS BEEN ASSOCIATED WITH NAUSEA AND VOMITING. REVIEW OF SYSTEMS: Wears glasses. No headaches, seizure or syncope. No sinus congestion of epistaxis. Diminished auditory acuity. No tinnitus. No bleeding gums or dysphagia. Denies cough, shortness of breath, upper respiratory infection, pneumonia or tuberculosis. No angina. He is status post cardiac bypass surgery. Appetite good. Bowel movements regular. No hepatitis, gallbladder disease, ulcers or hemorrhoids. He has occasional difficulty with urination as related to prostate disease. Positive history for kidney stones and enlarged prostate. No history of fractures. No psychiatric illness. The remaining review of systems is unremarkable and noncontributory. FAMILY HISTORY: 53 years. is [id number] noted to be in good health. One son and one daughter. His son with a history of insulin dependent diabetes. Family history is positive for diabetes, heart disease, lymphoma and leukemia. 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 Completed a high-school education with additional post-graduate training thereafter. Denies active use of tobacco. Ethanol consumption socially. PHYSICAL EXAM: Height 5 feet, 10 inches, weight 207 pounds. GENERAL: An alert, oriented and responsive 77-year-old white male sitting quietly upon the examination table with no obvious distress. HEAD, EARS, EYES, NOSE AND THROAT: Pupils equally round and reactive to light. Extraocular movements full. Sclerae clear. External nares clear. External auditory canals clear. Dental intact. Mucous membranes pink and moist. Pharynx clear. NECK: Supple. Active range of motion. No associated pain. Carotid pulse palpable bilaterally. Trachea midline. Thyroid without enlargement. LUNGS: Clear to auscultation and percussion. No CVA tenderness. No discomfort involving the dorsolumbar spine. HEART: Regular rhythm. No murmur or gallop. ABDOMEN: Soft, nontender. Bowel sounds present. RECTAL: Per primary care physician. EXTREMITIES: Left knee, no obvious swelling or effusion. Varus deformity with medial joint line tenderness. Apprehension and compression sign negative. Limited mobility at the extremes of flexion without significant crepitation associated. No collateral ligamentous laxity. Zach test and drawer sign negative. Pivot shift and Donato sign positive for medial compartment pain. Straight leg raising unremarkable at 80 degrees. Distal sensory grossly intact. Antalgia gait. NEUROLOGIC: Cranial nerves II-XII grossly intact. IMPRESSION: Osteoarthritis of the left knee, varus deformity left knee, pain left knee and gait disturbance. PLAN: Left total knee arthroplasty. The nature of the planned surgical procedure, the potential complications and risks associated, the expectations of surgery and the consent form were thoroughly reviewed with the patient in the presence of his prior to admission to the hospital. Mr. Topete has indicated his full understanding regarding all of the above and given consent to proceed with treatment as outlined. Medical evaluation and clearance for surgery will be completed by his primary care physician Dr. Shakira Maddox, cardiology clearance per Dr. Delatorre. MD ADELE Elliott/DL , 01:09 PM , 02:07 PM MAXX
[2017-08-14] MEDS ORDERED: POVIDONE IODINE 7.5% SCRUB 118 ML BOTTLE TOPICAL SCH (05:45)
[2017-08-14] MEDS ORDERED: CHLORHEXIDINE GLUCONATE 2 % 1 PACK (2 CLOTHS) TOPICAL PRN (05:45)
[2017-08-14] MEDS ORDERED: SODIUM CHLORID 0.9% 500 ML IV PRN (05:45)
[2017-08-14] MEDS ORDERED: LACTATED RINGER'S 1000 ML IV PRN (05:45)
[2017-08-14] MEDS ORDERED: POVIDONE IODINE 5% (ANTISEPSIS KIT) 4 APPLICATIONS EACH NARE PRN (05:45)
[2017-08-14] MEDS ORDERED: ceFAZolin 2 GM PREMIX 50 ML IV SCH (05:45)
[2017-08-14] MEDS ORDERED: METOPROLOL TARTRATE 25 MG TAB PO PRN (05:45)
[2017-08-14] MEDS ORDERED: TRANEXAMIC ACID 1 GM PRIOR TO PROCEDURE IV SCH ×2 (06:00)
[2017-08-14] MEDS ORDERED: BUPIVACAINE LIPOSOME PF 1.3% 20 ML VIAL ONE (06:02)
[2017-08-14] MEDS ORDERED: MIDAZOLAM HCL 2 MG/2 ML VIAL ONE (06:02)
[2017-08-14] MEDS ORDERED: ceFAZolin INJ 1,000 MG VIAL ONE (06:10)
[2017-08-14] MEDS ORDERED: FAT EMULSION 20% INJ 0 ML ONE (06:12)
[2017-08-14 06:22] VITALS: PULSE 63
[2017-08-14] MEDS ORDERED: ACETAMINOPHEN 1000 MG/100 ML 100 ML IV ONE (06:26)
[2017-08-14] MEDS ORDERED: FAMOTIDINE 20 MG/2 ML VIAL ONE (06:26)
[2017-08-14] MEDS ORDERED: TRANEXAMIC ACID 1 GM POST-OP IV SCH ×2 (09:00)
[2017-08-14] MEDS ORDERED: DO NOT ADM ANY ANTICOAGULANT DRUGS PRN (09:07)
[2017-08-14] MEDS ORDERED: HYDROmorphone HCL PF 2 MG/ML VIAL ONE (09:18)
--- NOTE | 2017-08-14 09:25 | HHI.FF ---
Face to Face Verification Diagnosis: (1) DJD (degenerative joint disease) of knee Physical Therapy Gait training Knee: Total knee, Protocol: Left, Full weight bearing Left LE Weight Bearing: WB as tolerated Left LE Range of Motion: Active ROM Nursing Dressing Changes: Daily dressing change I have seen patient Rosario Topete on 08/14/17. My clinical findings support the need for the requested home health care services because: Limited ability to care for self High risk of falls I certify that my clinical findings support that this patient is homebound because: Post-op weakness Unsteady gait/balance Unsafe to leave home unassisted David Hummel MD Aug 14, 2017 09:25
[2017-08-14] MEDS ORDERED: WALKER WHEELS/F1 MIS (09:27)
[2017-08-14] MEDS ORDERED: ONDANSETRON HCL 4 MG/2 ML VIAL IVP PRN (09:30)
[2017-08-14] MEDS ORDERED: ACETAMINOPHEN 325 MG TAB PO PRN (09:30)
[2017-08-14] MEDS ORDERED: Post-op Orders (for Pharmacy) XX ONE (09:30)
[2017-08-14] MEDS ORDERED: diphenhydrAMINE HCL 50 MG/ML VIAL IV PUSH PRN (09:30)
[2017-08-14] MEDS ORDERED: HYDROmorphone HCL PF 2 MG/ML VIAL IV PUSH PRN (09:30)
[2017-08-14] MEDS ORDERED: HYDROmorphone HCL 4 MG TAB PO PRN (09:30)
[2017-08-14] MEDS ORDERED: TRANEXAMIC ACID INJ 1,000 MG in SODIUM CHLORIDE 0.9% INJ 100 ML IV SCH (09:30)
[2017-08-14] MEDS ORDERED: MISCELLANEOUS PHARMACY INFORMATION XX ONE (09:30)
[2017-08-14] MEDS ORDERED: ACETAMINOPHEN/HYDROcodone 325 MG/5 MG TAB PO PRN (09:30)
[2017-08-14] MEDS ORDERED: ZOLPIDEM TARTRATE 5 MG TAB PO PRN (09:30)
[2017-08-14] MEDS ORDERED: DOCUSATE SODIUM 100 MG CAP PO PRN (09:30)
[2017-08-14] MEDS ORDERED: NALOXONE HCL 0.4 MG/ML AMP IV PUSH PRN (09:30)
[2017-08-14] MEDS ORDERED: *MEPERIDINE 25 MG INJ VIAL PERIprocedural Use ONLY ONE (09:39)
--- NOTE | 2017-08-14 09:56 | RADRPT ---
EXAM DATE/TIME: 08/14/2017 09:34 [facility] COMPARISON: No previous studies available for comparison. INDICATIONS : Post op left total knee. MEDICAL HISTORY : None. SURGICAL HISTORY : None. ENCOUNTER: Initial ACUITY: 1 day PAIN SCORE: Non-responsive. LOCATION: Left knee. FINDINGS: Postsurgical features of left knee arthroplasty. Arthroplasty components are in anatomic alignment. N o significant acute bony fracture. Immediate postsurgical soft tissue features. CONCLUSION: 1. Status post left knee arthroplasty in anatomic alignment without significant acute bony fracture. Bruce Brito MD on August 14, 2017 at 9:53 Board Certified Radiologist. This report was verified electronically.
[2017-08-14] MEDS: HYDROmorphone HCL PCA 6 MG/30 ML IV SCH (10:00)
[2017-08-14] MEDS: DEXT 5%-NACL 0.45% 1000 ML INJ 1,000 ML IV SCH ×3 (10:02→21:16)
--- NOTE | 2017-08-14 10:10 | MP ---
cc: David Hummel MD DATE OF OPERATION: 08/14/2017 PREOPERATIVE DIAGNOSIS: Osteoarthritis of the left knee, varus deformity left knee, pain left knee and gait disturbance. POSTOPERATIVE DIAGNOSIS: Osteoarthritis of the left knee, varus deformity left knee, pain left knee and gait disturbance. PROCEDURE: Left total knee arthroplasty. SURGEON: David Hummel MD ANESTHESIA: General endotracheal. INDICATIONS: A 77-year-old white male with a history of left knee pain extending back to 2011 when he had noted the onset of his discomfort secondary to routine household activities which included painting and standing on a scaffold for extended intervals of time. He was later diagnosed as having a medial meniscus tear and underwent arthroscopic surgery in September of 2011. He tolerated his operative procedure well and his postoperative course was stable thereafter. He did reasonably well over the following years until he returned to the office more recently indicating that he was having recurrent soreness about his left knee. He reported that he had conformed to an exercise program following the therapy he had received post arthroscopic surgery and was utilizing [id number] anti-inflammatory medication. His x-ray studies revealed obvious degenerative changes being most pronounced about the medial compartment with secondary involvement of the patellofemoral joint. Treatment options were reviewed. The patient was prescribed ibuprofen and Aspercreme and continued to conform to his exercise therapy program while being followed on an outpatient basis. His previous treatment had also included intraarticular steroid injections. His symptoms persisted and the patient later discontinued his medication due to his personal concerns with regards to potential adverse side effect from fpc use. His more current x-ray studies revealed [id number] apposition about the medial compartment associated with a varus deformity of at least 8 degrees magnitude. Findings and treatment options were reviewed. Emphasis was made regarding the fact that the decision to proceed with any form of operative intervention involving total knee arthroplasty would be left entirely to the patient's discretion. The patient considered his options in this regard and returned to the office in followup disposition indicating he was becoming progressively more symptomatic with pain and given the ongoing symptoms and associated limitations was ready to proceed with surgery as had previously been discussed. In compliance with his wishes, he was scheduled for admission at this time in order that the above be accomplished. FORMAT: Following the induction of satisfactory general anesthesia by endotracheal intubation as completed per the Department of Anesthesia, a tourniquet was established around the proximal portion of the left lower extremity. The extremity proper was isolated with a U-drape, thereafter being prepped with Betadine solution and draped into a sterile field in the routine manner. Prior to initiation of the actual procedure, the standard time-out protocol was completed. All parameters were appropriately addressed and confirmed by operating room personnel. The extremity was elevated for approximately 1 minute and the tourniquet thus inflated to 250 mmHg pressure. A sharp skin incision was initiated midline over the anterior aspect of the knee and developed through underlying subcutaneous tissue with hemostasis maintained by electrocautery. By deepening dissection, the anterior capsule was exposed, a medial capsulotomy completed and the patella subluxed in a lateral orientation. Examination of the joint space revealed severe degenerative changes being most pronounced throughout the medial compartment where there was complete erosion of articular cartilage and underlying subchondral bone exposed. The articular surface of the patella was resected. A 3-holed guide was utilized for establishing post holes. Medial and lateral meniscus structures were sharply excised as was the anterior cruciate ligament. A centering hole was placed in the distal aspect of the femur allowing positioning of the intramedullary guide. The distal femoral cutting jig was attached and the distal femur resected. AP measurement noted 70 mm sizing to be appropriate. The matching cutting block was positioned. Anterior, posterior and chamfer cuts were completed. The tibial plateau was thereafter subluxed in an anterior orientation allowing positioning of the extramedullary guide. The tibia plateau was resected and measured with 79 mm sizing determined to be appropriate. A trial reduction followed utilizing a 70 mm anatomic femoral component, a 79 mm tibial base with both 10 and 12 mm bearing inserts trailled. The 12 mm thickness was determined to be the more favorable fit. The knee was readily brought to full extension. There was no laxity to varus/valgus stress at both 0 and 90 degrees flexed posture. Orientation was confirmed as appropriate measurement of the pelvic guide through the mechanical axis of the knee. A trial reduction followed utilizing a 34 mm standard patella button. Once again, good tracking noted with no tendency towards subluxation. All trial components being removed, the remaining portion of the proximal tibia was prepared for insertion of the permanent component. The joint space thoroughly lavaged with pulsating antibiotic solution, hemostasis maintained by electrocautery. An autogenous bone plug was inserted into the distal femoral guide hole and thereafter a preparation of [place] bone cement was utilized in inserting knee components in a sequential fashion which included a 79 mm fixed cruciate tibial plate to which a 12 mm Vanguard tibial bearing insert was secured with locking hernández. The 70 mm Vanguard femoral component was firmly seated onto the distal femur. Excess cement being removed, the knee was brought to full extension and thereafter the 34 mm standard 3-post patellar button was attached and maintained in place with patellar clamp while cement hardening was completed. Final range of motion assessment noted good tracking and stability throughout the knee. Irrigation was repeated with hemostasis maintained. Autovac drain tubes were inserted through superior stab wounds. The capsule was repaired with 0 Vicryl suture. The remaining portion of the wound was closed in layers in the routine manner with skin margins being reapproximated with a running subcuticular 3-0 Vicryl suture over which Steri-Strips were applied. Xeroform gauze placed. A dry sterile dressing applied. Tourniquet deflated after 46 minutes of tourniquet time, the extremity being supposed in a canvas knee splint. Anesthesia was discontinued and the patient thereafter transferred to a hospital bed and returned to the recovery room in satisfactory condition having tolerated his operative procedure well. The estimated blood loss was approximately 100 mL as determined per Anesthesia. All implants were of the [employer]. MD ADELE Elliott/DL , 09:17 AM , 10:08 AM
[2017-08-14] MEDS ORDERED: GLYCOPYRROLATE 1 MG/5 ML SYRINGE IV PUSH ONE (12:00)
[2017-08-14] MEDS ORDERED: ONDANSETRON HCL 4 MG/2 ML VIAL IV ONE (12:00)
[2017-08-14] MEDS ORDERED: NEOSTIGMINE 5 MG/5 ML SYRINGE IV PUSH ONE (12:00)
[2017-08-14] MEDS ORDERED: DEXAMETHASONE SOD PHOS 4 MG/ML VIAL IV ONE (12:00)
[2017-08-14] MEDS ORDERED: LIDOCAINE HCL 1% PF 5 ML SYRINGE OTHER ONE (12:00)
[2017-08-14] MEDS ORDERED: ROCURONIUM INJ 50 MG/5 ML SYRINGE IV PUSH ONE (12:00)
[2017-08-14] MEDS ORDERED: PROPOFOL 200 MG/20 ML AMP IV ONE (12:00)
[2017-08-14] MEDS: PCA - TOTAL MG DILAUDID DELIVERED PER SHIFT SCH ×2 (14:00→22:00)
--- NOTE | 2017-08-14 15:20 | PD.CONS ---
HPI Service [facility] Consult Requested By Dr. winters Reason for Consult Medical comanagement Primary Care Physician Shakira Maddox MD Diagnoses: History of Present Illness This is a 77-year-old male with history of left knee osteoarthritis, coronary artery disease status post bypass surgery and BPH admitted for left knee total arthroplasty. Presently, patient is status post left knee replacement. He has no complaints, denies any chest pain, shortness of breath, nausea or vomiting. Ate his lunch, no abdominal pain. Mild left knee pain when moving otherwise manageable. Review of Systems ROS Limitations: Other (All other pertinent systems were reviewed and are negative.) Past Family Social History Allergies: Coded Allergies: morphine (Verified Adverse Reaction, Severe, Nausea/Vomiting, 08/14/17) Past Medical History Dyslipidemia Coronary artery disease, mild [place] BPH Basal cell carcinoma Paroxysmal atrial fibrillation Past Surgical History 1. Cardiac bypass surgery. 2. Tonsillectomy. 3. Lithotripsy. 4. Repair of a traumatic laceration of his right hand with tendon repair. 5. Excision of basal cell carcinoma of the right shoulder. Reported Medications Probiotic (Saccharomyces Boulardii) 250 Mg Cap 1 Cap PO EVERY OTHER DAY Coq-10 Tr (Coenzyme Q10 (Ubidecarenone)) 100 Mg Cap 1 Cap PO EVERY OTHER DAY Garlic Oil 1000 (Garlic) 1,000 Mg Cap 1 Cap PO DAILY Niacin 500 Mg Tab 500 Mg PO DAILY Ginseng Extract (Panax Ginseng Root Extract) 100 Mg Capsule 1 Tab PO DAILY Fish Oil 1000 mg ([place]-3 Fatty Acids) 300 Mg-1,000 Mg Cap 1 Cap PO BID Multiple Vitamin 1 Tab 1 Tab PO DAILY Crestor (Rosuvastatin Calcium) 10 Mg Tab 10 Mg PO HS Aspirin 81 Mg Chew 162 Mg CHEW DAILY Zetia (Ezetimibe) 10 Mg Tab 10 Mg PO HS Tamsulosin (Tamsulosin HCl) 0.4 Mg Cap 0.4 Mg PO HS Finasteride 5 Mg Tab 5 Mg PO DAILY Do not crush. Multaq (Dronedarone) 400 Mg Tab 400 Mg PO BID Family History Patient's son has diabetes mellitus, there is also family history of diabetes, heart disease, lymphoma and leukemia Social History Patient denies smoking, significant alcohol intake or use of any illicit drugs. Physical Exam Vital Signs Vital Signs Date Time Temp Pulse Resp B/P (MAP) Pulse Ox O2 Delivery O2 Flow Rate FiO2 08/14/17 12:00 98.7 75 14 117/66 (83) 98 Nasal Cannula 2 08/14/17 11:00 72 14 113/64 (80) 97 Nasal Cannula 2 08/14/17 10:30 71 16 114/55 (74) 98 Nasal Cannula 2 08/14/17 10:15 70 18 122/58 (79) 98 Nasal Cannula 2 08/14/17 10:00 65 19 115/58 (77) 97 Nasal Cannula 2 08/14/17 10:00 15 08/14/17 09:45 68 20 122/63 (82) 99 Nasal Cannula 2 08/14/17 09:30 56 20 104/55 (71) 99 Nasal Cannula 2 08/14/17 09:15 57 22 114/60 (78) 99 Nasal Cannula 2 08/14/17 09:09 98.5 56 25 115/59 (77) 100 Simple Mask 6 08/14/17 06:22 63 08/14/17 06:22 98 Nasal Cannula 2 08/14/17 06:05 98.7 65 20 144/79 (100) 97 Physical Exam Not in distress, well-nourished, looks stated age PERRL, pink conjunctiva without injection, anicteric Nose without bleeding, airway patent Supple neck Normal rate and regular rhythm, no murmurs gallops or rubs appreciated. Clear to auscultation and symmetric bilaterally, normal respiratory effort. Normal bowel sounds, soft, non-tender, nondistended, no guarding. Extremities without clubbing, cyanosis, or edema. Left knee dressings in place No rash of generalized distribution. Skin is warm and dry. AAO x3, no cranial nerve deficits, moves all 4 extremities, no focal neurologic deficits Assessment and Plan Assessment and Plan This is a 77-year-old male admitted for left knee arthroplasty, we are being consulted for medical management of coronary artery disease Coronary artery disease, history of paroxysmal atrial fibrillation-status post CABG and mild [place] in the past. Continue aspirin, Multaq Dyslipidemia having continue niacin, Crestor, Zetia BPH-continue finasteride and Flomax DVT prophylaxis: Xarelto. Thank you very much for this consult, we will follow along with you. Dawood Chi MD Aug 14, 2017 15:20
[2017-08-14 15:50] VITALS: BP_SYST 78; PULSE 76; RESP 17; TEMP 95.1; O2SAT 98
[2017-08-14 20:06] VITALS: BP 110/67; PULSE 77; RESP 18; TEMP 96.5; O2SAT 99
[2017-08-14] MEDS ORDERED: NON-FORMULARY DRUG (Omega-3 Fatty Acids (Fish Oil 1000 mg) 1 CAP) PO SCH (21:00)
[2017-08-14] MEDS: ATORVASTATIN 20 MG TAB PO SCH (21:19)
[2017-08-14] MEDS: EZETIMIBE 10 MG TAB PO SCH (21:19)
[2017-08-14] MEDS: TAMSULOSIN HCL 0.4 MG CAP PO SCH (21:19)
[2017-08-14] MEDS: DRONEDARONE 400 MG TAB PO SCH (21:19)
[2017-08-14 23:28] VITALS: BP 122/62; PULSE 77; RESP 18; TEMP 97.1; O2SAT 96
[2017-08-15] MEDS: DEXT 5%-NACL 0.45% 1000 ML INJ 1,000 ML IV SCH ×2 (03:54→18:00)
[2017-08-15 04:03] LABS: HEMATOCRIT 34.3 % (39.0-51.0); HEMOGLOBIN 11.6 GM/DL (13.0-17.0)
[2017-08-15] MEDS: HYDROmorphone HCL PCA 6 MG/30 ML IV SCH (04:12)
[2017-08-15 04:20] VITALS: BP 100/54; PULSE 60; RESP 18; TEMP 98; O2SAT 96
[2017-08-15] MEDS: PCA - TOTAL MG DILAUDID DELIVERED PER SHIFT SCH (06:00)
[2017-08-15] MEDS ORDERED: HYDR-3516 PO (06:06)
[2017-08-15] MEDS ORDERED: ASPI-183 PO (06:06)
[2017-08-15 08:00] VITALS: BP 103/60; PULSE 61; RESP 18; TEMP 96.8; O2SAT 96
[2017-08-15] MEDS: RIVAROXABAN 10 MG TAB PO SCH (08:48)
[2017-08-15] MEDS: MULTIVITAMIN TAB PO SCH (08:48)
[2017-08-15] MEDS: DRONEDARONE 400 MG TAB PO SCH ×2 (08:49→18:44)
[2017-08-15] MEDS ORDERED: FINASTERIDE 5 MG TAB PO SCH (09:00)
[2017-08-15] MEDS ORDERED: NIACIN 500 MG EXTENDED RELEASE TAB PO SCH (09:00)
[2017-08-15 10:20] VITALS: O2SAT 94
[2017-08-15] MEDS: ACETAMINOPHEN/HYDROcodone 325 MG/5 MG TAB PO PRN ×4 (10:32→22:55)
--- NOTE | 2017-08-15 11:17 | HHI.PR ---
Subjective Remarks Follow-up left knee arthroplasty and coronary artery disease. Patient seen and examined, sitting up in chair comfortably. No apparent distress. Denies any new complaints. Pain is well controlled. Has been eating well. Participating in PT. Vital signs are stable. Afebrile. Objective Vitals Vital Signs Date Time Temp Pulse Resp B/P (MAP) Pulse Ox O2 Delivery O2 Flow Rate FiO2 08/15/17 10:20 94 21 08/15/17 08:00 96.8 61 18 103/60 (74) 96 08/15/17 06:00 17 08/15/17 05:43 94 Room Air 08/15/17 04:20 98.0 60 18 100/54 (69) 96 08/15/17 04:12 17 08/14/17 23:28 97.1 77 18 122/62 (82) 96 08/14/17 22:00 16 08/14/17 21:17 99 Nasal Cannula 2.00 08/14/17 20:06 96.5 77 18 110/67 (81) 99 08/14/17 15:50 95.1 76 17 78/ 98 08/14/17 14:00 17 08/14/17 12:00 98.7 75 14 117/66 (83) 98 Nasal Cannula 2 I/O 08/14/17 08/14/17 08/14/17 08/15/17 08/15/17 08/15/17 06:59 14:59 22:59 06:59 14:59 22:59 Intake Total 1606.2 ml 1332.2 ml 1710 ml Output Total 1425 ml 570 ml 1290 ml Balance 181.2 ml 762.2 ml 420 ml Intake Oral 380 ml 480 ml 360 ml IV Total 1226.2 ml 852.2 ml 1350 ml Output Urine Total 225 ml 450 ml 1200 ml Drainage Total 120 ml 90 ml Estimated Blood Loss 100 ml Autotransfusion 100 ml Other 1000 ml # Bowel Movements 0 0 0 Result Diagram: 08/15/17 0341 Imaging Last Impressions Knee X-Ray 08/14/17 09 Signed Impressions: Service Date/Time: Monday, August 14, 2017 09:34 - CONCLUSION: 1. Status post left knee arthroplasty in anatomic alignment without significant acute bony fracture. Bruce Brito MD Objective Remarks GENERAL: Well-developed, well-nourished patient in NAD. SKIN: Warm and dry. No rash. Left knee dressings intact. Drain intact. HEAD: Normocephalic. Atraumatic. EYES: Pupils equal and round. No scleral icterus. No injection or drainage. ENT: No nasal bleeding or discharge. Mucous membranes pink and moist. NECK: Supple. Trachea midline. CARDIOVASCULAR: Regular rate and rhythm. S1, S2 noted. No murmur appreciated. RESPIRATORY: No accessory muscle use. Clear to auscultation. Breath sounds equal bilaterally. GASTROINTESTINAL: Abdomen soft, non-tender, nondistended. Normoactive bowel sounds x4. MUSCULOSKELETAL: No obvious deformities. Extremities without clubbing, cyanosis , or edema. NEUROLOGICAL: Awake and alert. No obvious cranial nerve deficits. Motor grossly within normal limits. 5/5 muscle strength in bilateral upper and lower extremities. Normal speech. A/P Assessment and Plan This is a 77-year-old male admitted for left knee arthroplasty, we are being consulted for medical management of coronary artery disease Left knee arthroplasty: Managed by orthopedic team. Pain control with Pearce as needed. Coronary artery disease, history of paroxysmal atrial fibrillation: Status post CABG and mild [place] in the past. Continue aspirin, Multaq Dyslipidemia, chronic: Continue niacin, Crestor, Zetia History of BPH: continue finasteride and Flomax DVT prophylaxis: Xarelto. Tabitha Webster Aug 15, 2017 11:17
[2017-08-15 12:00] VITALS: BP 93/60; PULSE 70; RESP 18; TEMP 96.6; O2SAT 96
[2017-08-15] MEDS: NIACIN 500 MG EXTENDED RELEASE TAB PO SCH (12:29)
[2017-08-15 15:53] VITALS: BP 107/56; PULSE 69; RESP 18; TEMP 97.1; O2SAT 98
[2017-08-15] MEDS: FINASTERIDE 5 MG TAB PO SCH (18:00)
[2017-08-15 20:00] VITALS: BP 127/57; PULSE 69; RESP 18; TEMP 98.8; O2SAT 98
[2017-08-15] MEDS: EZETIMIBE 10 MG TAB PO SCH (21:46)
[2017-08-15] MEDS: TAMSULOSIN HCL 0.4 MG CAP PO SCH (21:46)
[2017-08-15] MEDS: ATORVASTATIN 20 MG TAB PO SCH (21:46)
[2017-08-16 00:04] VITALS: BP 127/67; PULSE 72; RESP 18; TEMP 98.5; O2SAT 96
[2017-08-16] MEDS: DEXT 5%-NACL 0.45% 1000 ML INJ 1,000 ML IV SCH (02:00)
[2017-08-16] MEDS: ACETAMINOPHEN/HYDROcodone 325 MG/5 MG TAB PO PRN (04:43)
[2017-08-16 07:00] LABS: AUTOMATED NEUTROPHIL # 6.8 TH/MM3 (1.8-7.7); BASOPHIL % 0.5 % (0.0-2.0); EOSINOPHIL # 0.2 TH/MM3 (0-0.4); HEMOGLOBIN 11.5 GM/DL (13.0-17.0); LYMPH % 10.8 % (9.0-44.0); MEAN CELL VOLUME 87.1 FL (80.0-100.0); MEAN CORPUSCULAR HEMOGLOBIN 29.6 PG (27.0-34.0); MEAN PLATELET VOLUME 8.1 FL (7.0-11.0); MONO % 10.4 % (0.0-8.0); MONOCYTE # 0.9 TH/MM3 (0-0.9); NEUT % 76.3 % (16.0-70.0); PLATELET COUNT 139 TH/MM3 (150-450); RED CELL DISTRIBUTION WIDTH 14.9 % (11.6-17.2)
--- NOTE | 2017-08-16 07:20 | MD ---
cc: David Hummel MD, Sandra L MD Jamidar,Wilbert Nunez MD DATE OF DISCHARGE: 08/17/2017 ADMITTING DIAGNOSES: Osteoarthritis of the left knee, varus deformity, left knee pain, left knee and gait disturbance. DISCHARGE DIAGNOSES: Osteoarthritis of the left knee, varus deformity, left knee pain, left knee and gait disturbance. HISTORY: A 77-year-old white male with a lengthy history of left knee pain extending back to at least 2011 when the patient experienced the onset of discomfort secondary to household activities which included painting and standing on a scaffold ladder for an extended interval of time. He was later diagnosed as having a medial meniscus tear for which he underwent arthroscopic surgery in September of 2011. He tolerated his operative procedure well and his postoperative course was stable thereafter. He completed a rehabilitation program and has done reasonably well over the following few years until he returned to the office within the previous 2 years, at which time, he reported that he was beginning to experience soreness about the left knee especially with bending and twisting type motion. He had remained ambulatory throughout this interval of time and had been able to conform to his daily routine in a reasonably comfortable manner. He was also taking aspirin on a daily basis. His x-ray studies revealed obvious degenerative changes with pronounced narrowing about the medial compartment and secondary involvement of the patellofemoral articulation. Findings and treatment options were reviewed with the patient. He was initiated on a course of taking ibuprofen and trying Aspercreme versus Biofreeze while continuing to exercise under his own supervision and being followed on an outpatient basis. He returned to the office in April of this past year indicating that he was becoming progressively more symptomatic with pain associated with a frequent grinding sensation for which he had discontinued the use of anti-inflammatory medication due to his personal concerns regarding potential adverse side effects. His more current x-ray studies revealed obvious degenerative changes with [id number]-[id number] apposition about the medial compartment associated with a varus deformity of almost 8 degrees magnitude. Once again, findings and treatment options were reviewed. The pros and cons of continuing with further conservative management versus operative intervention involving total knee arthroplasty were outlined. Emphasis was made regarding the fact that the decision to proceed with surgery would be left entirely to the patient's discretion. The patient considered his options and returned to the office more recently indicating that he was becoming progressively more symptomatic with pain and given the ongoing symptoms associated with limitations, he was desirous of proceeding with surgery as had been discussed. In compliance with his wishes, he was scheduled for admission at this time in order that the above be accomplished. His physical examination at the time of admission revealed no obvious swelling or effusion. There was varus deformity with medial joint line tenderness. Apprehension and compression sign negative. Limited mobility at the extremes of flexion without significant crepitation. No collateral ligamentous laxity. Zach test and drawer sign negative. Pivot shift and Donato sign positive for medial compartment pain. Straight leg raising unremarkable at 80 degrees. Distal sensory grossly intact. Antalgic gait. HOSPITAL COURSE : Prior to admission to the hospital, the patient had undergone medical evaluation and clearance for surgery as completed by his primary care physician, Dr. Shakira Maddox, cardiac clearance per Dr. Delatorre. He was taken to the operating room on 08/14/2017 and on that date underwent a left total knee arthroplasty completed in an uncomplicated manner. The patient was noted to have tolerated his operative procedure well. His postoperative course stable thereafter. Hemoglobin and hematocrit assessment postoperatively was 11.6 and 34.3 respectively. The patient was progressively mobilized under the guidance of physical therapy being permitted weightbearing to tolerance about the left lower extremity. Followup examination of his surgical wound noted to be intact, healing favorably with no evidence of infection. MEDICAL FOLLOWUP: Per the hospitalist service. DVT prophylaxis initiated. [employer] Technician consulted to assist with discharge planning. The patient had expressed his desire to be discharged home and continue his rehabilitation on an outpatient basis. Plans were finalized in this regard and pending medical clearance, he was scheduled for discharge on the third postoperative day at which time he was making steady progress with regard to his rehabilitation program. He was scheduled to be seen in office followup in approximately 4. CONDITION ON DISCHARGE: Stable. PROGNOSIS: Favorable. DISCHARGE MEDICATIONS: Included hydrocodone 5/325, #60; aspirin 325 mg 1 tab twice daily for 3 weeks, #40. David Hummel MD NBS/DL , 06:29 AM , 07:18 AM
[2017-08-16 07:26] LABS: BICARBONATE 28.8 MEQ/L (21.0-32.0); CALCIUM 7.6 MG/DL (8.5-10.1); CREATININE 0.92 MG/DL (0.60-1.30)
[2017-08-16 08:00] VITALS: BP 98/62; PULSE 108; RESP 18; TEMP 97.7; O2SAT 94
[2017-08-16] MEDS: NIACIN 500 MG EXTENDED RELEASE TAB PO SCH (08:38)
[2017-08-16] MEDS: MULTIVITAMIN TAB PO SCH (08:38)
[2017-08-16] MEDS: FINASTERIDE 5 MG TAB PO SCH (08:38)
[2017-08-16] MEDS: RIVAROXABAN 10 MG TAB PO SCH (08:38)
[2017-08-16] MEDS: DRONEDARONE 400 MG TAB PO SCH (08:38)
[2017-08-16 10:37] VITALS: O2SAT 94
--- NOTE | 2017-08-16 12:46 | HHI.PR ---
Subjective Remarks Follow up on patient status post left knee arthroplasty. Patient seen and examined. Patient states is "atrial fibrillation is acting up". States he feels palpitations. Reports dizziness earlier but has since resolved. Patient follows with Dr. Delatorre as outpatient and is on aspirin only for anticoagulation per his choice. He denies any fever or chills. Denies any chest pain or shortness of breath. Denies any nausea, vomiting or abdominal pain. States he is urinating without any difficulties. Has not had a bowel movement but states he is passing flatus. Objective Vitals Vital Signs Date Time Temp Pulse Resp B/P (MAP) Pulse Ox O2 Delivery O2 Flow Rate FiO2 08/16/17 10:37 94 08/16/17 08:00 97.7 108 18 98/62 (74) 94 08/16/17 00:04 98.5 72 18 127/67 (87) 96 08/15/17 22:55 Room Air 08/15/17 20:00 98.8 69 18 127/57 (80) 98 08/15/17 15:53 97.1 69 18 107/56 (73) 98 08/15/17 13:28 16 I/O 08/15/17 08/15/17 08/15/17 08/16/17 08/16/17 08/16/17 07:00 15:00 23:00 07:00 15:00 23:00 Intake Total 1710 ml 600 ml 480 ml 480 ml Output Total 1290 ml 450 ml 80 ml 600 ml Balance 420 ml 150 ml 400 ml -120 ml Intake Oral 360 ml 600 ml 480 ml 480 ml IV Total 1350 ml Output Urine Total 1200 ml 450 ml 600 ml Drainage Total 90 ml 80 ml # Voids 4 # Bowel Movements 0 0 0 0 Result Diagram: 08/16/17 0609 08/16/17 0609 Imaging Last Impressions Knee X-Ray 08/14/17918 Signed Impressions: Service Date/Time: Monday, August 14, 2017 09:34 - CONCLUSION: 1. Status post left knee arthroplasty in anatomic alignment without significant acute bony fracture. Bruce Brito MD Objective Remarks GENERAL: Well-developed, well-nourished male patient in NAD. Appears younger than stated age. Awake and alert. SKIN: Warm and dry. No rash. Left knee dressings C/D/I. HEAD: Normocephalic. Atraumatic. EYES: EOMI. No scleral icterus. No injection or drainage. ENT: No nasal bleeding or discharge. Mucous membranes pink and moist. NECK: Trachea midline. CARDIOVASCULAR: Irregular, no murmur noted. RESPIRATORY: Nonlabored. Clear to auscultation. Breath sounds equal bilaterally. GASTROINTESTINAL: Abdomen soft, non-tender, nondistended. Normoactive bowel sounds x4. MUSCULOSKELETAL: No obvious deformities. Extremities without clubbing, cyanosis , or edema. Trace to 1+ edema in LLE. NEUROLOGICAL: Awake and alert. No obvious cranial nerve deficits. Able to move all extremities spontaneously. No focal neurologic finding apprecaited. Normal speech. Procedures s/p Left TKA Medications and IVs Current Medications Medications (Trade) Dose Ordered Sig/Jennifer Route Start Time Stop Time Status Last Admin Lactated Ringer's 1,000 ml @ 30 mls/hr Q24H PRN IV 08/14/17 05:45 08/17/17 05:44 08/14/17 06:00 Sodium Chloride 500 ml @ 30 mls/hr [id number] PRN IV 08/14/17 05:45 08/17/17 05:44 (Lopressor) 25 mg SEED CLEANER PRN PO 08/14/17 05:45 08/17/17 05:44 (Betadine 5% Antisepsis Kit) 1 applic SEED CLEANER PRN EACH NARE 08/14/17 05:45 08/17/17 05:44 08/14/17 06:00 (Chlorhexidine 2% Cloth) 3 pack SEED CLEANER PRN TOPICAL 08/14/17 05:45 08/17/17 05:44 08/14/17 05:30 (Betadine 7.5% Scrub) 1 applic ONCE TOPICAL 08/14/17 05:45 08/17/17 05:44 08/14/17 06:00 Cefazolin Sodium/ Dextrose 50 ml @ 100 mls/hr SEED CLEANER IV 08/14/17 05:45 08/17/17 05:44 08/14/17 06:42 (Xarelto) 10 mg Q24H PO 08/15/17 08:00 08/16/17 08:38 (Dilaudid Pf Inj) 1 mg Q3H PRN IV PUSH 08/14/17 09:30 (Paragon 5-325 Mg) 1 tab Q4H PRN PO 08/14/17 09:30 08/16/17 04:43 (Paragon 5-325 Mg) 2 tab Q4H PRN PO 08/14/17 09:30 08/16/17 10:22 (Tylenol) 650 mg Q6H PRN PO 08/14/17 09:30 (Zofran Inj) 4 mg Q6H PRN IVP 08/14/17 09:30 (Colace) 100 mg BID PRN PO 08/14/17 09:30 08/15/17 21:46 (Ambien) 5 mg HS PRN PO 08/14/17 09:30 Dextrose/Sodium Chloride 1,000 ml @ 125 mls/hr Q8H IV 08/14/17 10:00 08/15/17 03:54 (Dilaudid) 4 mg Q4H PRN PO 08/14/17 09:30 (Narcan Inj) 0.4 mg UNSCH PRN IV PUSH 08/14/17 09:30 (Benadryl Inj) 25 mg Q6H PRN IV PUSH 08/14/17 09:30 (Multaq) 400 mg BID PO 08/14/17 21:00 08/16/17 08:38 (Zetia) 10 mg HS PO 08/14/17 21:00 08/15/17 21:46 (Flomax) 0.4 mg HS PO 08/14/17 21:00 08/15/17 21:46 (Theragran) 1 tab DAILY PO 08/15/17 09:00 08/16/17 08:38 (Lipitor) 20 mg HS PO 08/14/17 21:00 08/15/17 21:46 (Proscar) 5 mg DAILY PO 08/15/17 18:00 08/16/17 08:38 (Slo-Niacin) 500 mg DAILY PO 08/15/17 12:00 08/16/17 08:38 A/P Assessment and Plan This is a 77-year-old male admitted for left knee arthroplasty, we are being consulted for medical management of coronary artery disease. Left knee arthroplasty: Managed by orthopedic team. Pain control with Paragon as needed with bowel regimen. Coronary artery disease, history of paroxysmal atrial fibrillation: Status post CABG and mild [place] in the past. Continue aspirin, Multaq. Irregular on exam with complaints of palpitations and dizziness. Consult patients osteology teacher Dr. Delatorre, appreciate assistance. Hypotensive: Check orthostatic BP measurements. Fall precautions. Hold Proscar and Flomax for now. Encourage po intake. Dyslipidemia, chronic: Continue niacin, Crestor, Zetia History of BPH: on finasteride and Flomax DVT prophylaxis: Xarelto. Demi Alva Aug 16, 2017 12:46
[2017-08-16] MEDS ORDERED: DOCUSATE SODIUM 50 MG/SENNA 8.6 MG TAB PO SCH (21:00)
== END 2017-08-16 14:37 | disposition home health service (06) | DRG 470 ==
LOC: HSDI 08-14 05:19 → N06B 08-14 12:12
PROVIDERS: ADMIT Orthopaedic Surgery; ATTEND Orthopaedic Surgery
PROC: 3E0T3BZ Introduction of Anesthetic Agent into Peripheral Nerves and Plexi, Percutaneous Approach (ICD-10-PCS; 2017-08-14)
PROC: 0SRD0J9 Replacement of Left Knee Joint with Synthetic Substitute, Cemented, Open Approach (ICD-10-PCS; principal; 2017-08-14 06:46)
DX: M17.12 Unilateral primary osteoarthritis, left knee (principal); I48.0 Paroxysmal atrial fibrillation; E78.5 Hyperlipidemia, unspecified; I25.10 Atherosclerotic heart disease of native coronary artery without angina pectoris; N40.0 Benign prostatic hyperplasia without lower urinary tract symptoms; M21.162 Varus deformity, not elsewhere classified, left knee; Z95.1 Presence of aortocoronary bypass graft; Z85.828 Personal history of other malignant neoplasm of skin; Z79.82 Long term (current) use of aspirin; I25.2 Old myocardial infarction
CPT/HCPCS: 73560; 80048; 85014; 85018; 85025; 86850; 86900; 86901; 88305; 88307; 88311; 94150; C1776; C9290; J0131; J0690; J1100; J1170; J2175; J2250; J2405; J2710; J3010; J7120; L1830

== ENCOUNTER → 2017-08-01 | Outpatient (CLI) | payer MEDICARE, BC ==
[2017-08-01 10:39] LABS: AUTOMATED NEUTROPHIL # 3.8 TH/MM3 (1.8-7.7); BASOPHIL # 0.1 TH/MM3 (0-0.2); BASOPHIL % 1.3 % (0.0-2.0); EOSINOPHIL # 0.4 TH/MM3 (0-0.4); EOSINOPHIL % 6.6 % (0.0-4.0); HEMATOCRIT 44.6 % (39.0-51.0); HEMOGLOBIN 15.1 GM/DL (13.0-17.0); LYMPH % 19.2 % (9.0-44.0); LYMPHOCYTE # 1.1 TH/MM3 (1.0-4.8); MEAN CELL VOLUME 87.3 FL (80.0-100.0); MEAN CORPUSCULAR HEMOGLOBIN 29.6 PG (27.0-34.0); MEAN PLATELET VOLUME 8.2 FL (7.0-11.0); MONO % 8.1 % (0.0-8.0); MONOCYTE # 0.5 TH/MM3 (0-0.9); NEUT % 64.8 % (16.0-70.0); PLATELET COUNT 205 TH/MM3 (150-450); RED BLOOD COUNT 5.11 MIL/MM3 (4.50-5.90); RED CELL DISTRIBUTION WIDTH 14.5 % (11.6-17.2); WHITE BLOOD COUNT 5.9 TH/MM3 (4.0-11.0)
[2017-08-01 10:46] LABS: PROTHROMBIN TIME - PATIENT 10.5 SEC (9.8-11.6)
[2017-08-01 10:46] LABS: BILIRUBIN, URINE NEG (NEG); BLOOD, URINE NEG (NEG); GLUCOSE,URINE NEG (NEG); KETONE, URINE NEG (NEG); MUCUS URINE FEW /lpf (OCC); NITRITE,URINE NEG (NEG); URINE COLOR YELLOW (YELLW/STRAW); URINE LEUKOCYTE ESTERASE NEG (NEG)
[2017-08-01 11:03] LABS: BICARBONATE 30.3 MEQ/L (21.0-32.0); CALCIUM 8.6 MG/DL (8.5-10.1); CREATININE 1.06 MG/DL (0.60-1.30)
== END ==
LOC: CPRE 09:28
PROVIDERS: ATTEND Orthopaedic Surgery
DX: Z01.812 Encounter for preprocedural laboratory examination (principal); M17.12 Unilateral primary osteoarthritis, left knee
CPT/HCPCS: 36415; 80048; 81001; 85025; 85610

== ENCOUNTER 2017-08-17 21:21 | Emergency (ER) | payer MEDICARE, BC ==
[~2017-08-17] VITALS: Ht 180.3 cm; Wt 92.9 kg
[~2017-08-17 21:21] MED LIST changes: +ASPI-183 PO; -ASPI-516 CHEW; +HYDR-3516 PO; +WALKER WHEELS/F1 MIS
[2017-08-17 21:28] VITALS: BP 116/68; PULSE 110; RESP 18; TEMP 99.3; O2SAT 97
--- NOTE | 2017-08-17 22:10 | PD ---
HPI Chief Complaint: Skin Problem Time Seen by Provider: 21:58 Travel History International Travel<30 days: No Contact w/Intl Traveler<30days: No Traveled to known affect area: No History of Present Illness HPI 77-year-old male presents to the emergency department complaint of left knee swelling and redness with increased warmth noted since 5 AM today. Patient underwent elective total knee replacement of the left knee 08/14/[address] [facility] by his orthopedist Dr. David Hummel. Patient was on antibiotic during his hospitalization. Patient was not discharged on antibiotic. Patient denied any fever chills while in the hospital. Patient states today he felt slightly chilled and thought perhaps he might have a fever and then in triage was told that his temperature was 99.3 F so is concerned he has low-grade fever. Patient has history of atrial fibrillation CAD with previous stent placement denies diabetes. Patient takes aspirin daily takes no other blood thinning agents. Patient is noted swelling of the left lower extremity which she states is also new since being discharged from the hospital yesterday. Patient states that the knee is markedly more swollen today than it was at time of discharge and confirms this. Patient states pain is not significant however. Patient has not been taking pain medication. Patient has been taking daily aspirin as directed. Patient states the time of discharge and when he went home to do his home exercises he was able to get 90 of knee flexion and now when he attempts to go to 90 of knee flexion the knee feels very tense and tight and he is very concerned that he will rip open his incision site so decided to come to the emergency room. Patient also was seen by a home health nurse alex at 8:30 PM and she suggested that he come to the emergency room. Patient denies any other redness of the skin, denies cough congestion shortness of breath chest pain, denies nausea or vomiting, denies dysuria frequency urgency or flank pain. Patient also has had no shortness of breath or pleuritic chest pain. PFSH Past Medical History Narrative Medical Aspirin use arthritis dyslipidemia CAD cardiac catheterization with stent CABG 1 vessel left total knee replacement 08/14/17 BPH TURP lithotripsy; occasional alcohol use; nursing notes reviewed Hx Anticoagulant Therapy: Yes (162mg asa) Arthritis: Yes Atrial Fibrillation: Yes Blood Disorders: No Cancer: No Cardiovascular Problems: Yes (A-FIb) High Cholesterol: Yes Chest Pain: Yes Congestive Heart Failure: No Coronary Artery Disease: Yes Diabetes: No Endocrine: No Genitourinary: Yes (BPH) Hepatitis: No Hiatal Hernia: No Immune Disorder: No Musculoskeletal: Yes (arthritis) Neurologic: No Psychiatric: No Reproductive: No Respiratory: No Thyroid Disease: No Past Surgical History Abdominal Surgery: No AICD: No Body Medical Devices: sternotomy wires Cardiac Surgery: Yes (cabg x 1 2000) Coronary Artery Bypass Graft: Yes (X 1) Ear Surgery: No Endocrine Surgery: No Eye Surgery: No Genitourinary Surgery: Yes (LITHOTRIPSY OF RENAL CALCULI, TUMT) Gynecologic Surgery: No Joint Replacement: No Oral Surgery: Yes (tonsillectomy) Pacemaker: No Thoracic Surgery: Yes (bypass x 1) Tonsillectomy: Yes Other Surgery: Yes Social History Alcohol Use: Yes (OCCASIONAL) Tobacco Use: No Substance Use: No Allergies-Medications (Allergen,Severity, Reaction): Coded Allergies: morphine (Verified Adverse Reaction, Severe, Nausea/Vomiting, 08/17/17) Reported Meds & Prescriptions Reported Meds & Active Scripts Active Aspirin 325 Mg Tab 325 Mg PO BID Hydrocodone-Acetamin 5-325 mg (Hydrocodone/Acetaminophen) 5 Mg-325 Mg Tablet 2 Tab PO Q4H PRN 30 Days Walker with Front Wheels (Device) 1 Mis Mis Ea .XX DIRECTED use as directed Reported Probiotic (Saccharomyces Boulardii) 250 Mg Cap 1 Cap PO EVERY OTHER DAY Coq-10 Tr (Coenzyme Q10 (Ubidecarenone)) 100 Mg Cap 1 Cap PO EVERY OTHER DAY Garlic Oil 1000 (Garlic) 1,000 Mg Cap 1 Cap PO DAILY Niacin 500 Mg Tab 500 Mg PO DAILY Ginseng Extract (Panax Ginseng Root Extract) 100 Mg Capsule 1 Tab PO DAILY Fish Oil 1000 mg ([place]-3 Fatty Acids) 300 Mg-1,000 Mg Cap 1 Cap PO BID Multiple Vitamin 1 Tab 1 Tab PO DAILY Crestor (Rosuvastatin Calcium) 10 Mg Tab 10 Mg PO HS Zetia (Ezetimibe) 10 Mg Tab 10 Mg PO HS Tamsulosin (Tamsulosin HCl) 0.4 Mg Cap 0.4 Mg PO HS Finasteride 5 Mg Tab 5 Mg PO DAILY Do not crush. Multaq (Dronedarone) 400 Mg Tab 400 Mg PO BID Review of Systems Except as stated in HPI: all other systems reviewed are Neg General / Constitutional: Positive: Fever, No: Chills (Subjective) HENT: No: Congestion Cardiovascular: No: Chest Pain or Discomfort, Palpitations Respiratory: No: Cough, Shortness of Breath, Pleuritic Pain Gastrointestinal: No: Nausea, Vomiting, Diarrhea, Abdominal Pain Genitourinary: No: Dysuria, Flank Pain Musculoskeletal: Positive: Edema (Left knee), Pain (Mild), No: Myalgias, Arthralgias, Limited ROM (Swelling left knee) Skin: Positive Other (Redness left knee with swelling and increased warmth) Neurologic: No: Weakness, Dizziness, Syncope, Focal Abnormalities, Coordination Problem Psychiatric: No: Anxiety Hematologic/Lymphatic: No: Lymph Node Enlargement Physical Exam Narrative GENERAL: Well-developed well-nourished male no acute distress or respiratory distress; temp: 99.3F; HR: 110; BP and respiratory rate within normal range O2 saturation 97% on room air SKIN: Warm and dry. HEAD: Normocephalic. EYES: No scleral icterus. No injection or drainage. NECK: Supple, trachea midline. No JVD or lymphadenopathy. CARDIOVASCULAR: Increased regular rate and rhythm without murmurs, gallops, or rubs. RESPIRATORY: Breath sounds equal bilaterally. No accessory muscle use. GASTROINTESTINAL: Abdomen soft, non-tender, nondistended. MUSCULOSKELETAL: No cyanosis, left lower extremity edema, with swelling of the left knee incision site is intact Steri-Strips are dry and intact there is mild erythema and mild increased warmth medial aspect of the left knee with pretibial pitting edema and posterior calf tenderness and posterior knee tenderness to palpation no pallor or coolness of the limb dorsalis pedis pulses 2+ to palpation. Patient is able to perform knee flexion to approximately 70 although noted some soft tissue tenseness of the left knee limiting range of motion. BACK: Nontender without obvious deformity. No CVA tenderness. Data Data Last Documented VS Vital Signs Date Time Temp Pulse Resp B/P (MAP) Pulse Ox O2 Delivery O2 Flow Rate FiO2 08/17/17 22:38 96 08/17/17 22:35 90 08/17/17 21:28 99.3 18 Orders Orders Sepsis Workup Initiated (08/17/17 ) Complete Blood Count With Diff (08/17/17 21:58) Prothrombin Time / Inr (Pt) (08/17/17 21:58) Act Partial Throm Time (Ptt) (08/17/17 21:58) Lactic Acid Sepsis Protocol (08/17/17 21:58) Magnesium (Mg) (08/17/17 21:58) Urinalysis - C+S If Indicated (08/17/17 21:58) Blood Culture (08/17/17 21:58) Blood Glucose (08/17/17 21:58) Ecg Monitoring (08/17/17 21:58) Iv Access Insert/Monitor (08/17/17 21:58) Oximetry (08/17/17 21:58) Oxygen Administration (08/17/17 21:58) Knee, Ltd (1 Or 2vws) (08/17/17 ) Us Leg Venous Doppler (08/17/17 ) Basic Metabolic Panel (Bmp) (08/17/17 21:58) Sodium Chlorid 0.9% 500 Ml Inj (Ns 500 M (08/17/17 22:15) Sodium Chlorid 0.9% 500 Ml Inj (Ns 500 M (08/17/17 22:15) Vancomycin Inj (Vancomycin Inj) (08/17/17 22:15) Labs Laboratory Tests Test 08/17/17 22:13 White Blood Count 7.8 TH/MM3 Red Blood Count 4.01 MIL/MM3 Hemoglobin 11.3 GM/DL Hematocrit 34.8 % Mean Corpuscular Volume 86.9 FL Mean Corpuscular Hemoglobin 28.1 PG Mean Corpuscular Hemoglobin Concent 32.3 % Red Cell Distribution Width 13.9 % Platelet Count 182 TH/MM3 Mean Platelet Volume 7.9 FL Neutrophils (%) (Auto) 74.5 % Lymphocytes (%) (Auto) 13.2 % Monocytes (%) (Auto) 8.9 % Eosinophils (%) (Auto) 2.8 % Basophils (%) (Auto) 0.6 % Neutrophils # (Auto) 5.9 TH/MM3 Lymphocytes # (Auto) 1.0 TH/MM3 Monocytes # (Auto) 0.7 TH/MM3 Eosinophils # (Auto) 0.2 TH/MM3 Basophils # (Auto) 0.0 TH/MM3 CBC Comment DIFF FINAL Differential Comment Prothrombin Time 10.2 SEC Prothromb Time International Ratio 1.0 RATIO Activated Partial Thromboplast Time 25.8 SEC Blood Urea Nitrogen 16 MG/DL Creatinine 0.83 MG/DL Random Glucose 113 MG/DL Calcium Level 7.5 MG/DL Magnesium Level 2.1 MG/DL Sodium Level 137 MEQ/L Potassium Level 4.0 MEQ/L Chloride Level 104 MEQ/L Carbon Dioxide Level 27.5 MEQ/L Anion Gap 6 MEQ/L Estimat Glomerular Filtration Rate 89 ML/MIN Lactic Acid Level 1.0 mmol/L MDM Medical Decision Making Medical Screen Exam Complete: Yes Emergency Medical Condition: Yes Medical Record Reviewed: Yes Interpretation(s) CBC & BMP Diagram 08/17/17 22:13 Calcium Level 7.5 L, Magnesium Level 2.1 Vital Signs Date Time Temp Pulse Resp B/P (MAP) Pulse Ox O2 Delivery O2 Flow Rate FiO2 08/17/17 22:38 96 08/17/17 22:35 90 101/61 (74) 95 08/17/17 21:28 99.3 110 18 116/68 (84) 97 Lactic acid: 1.0, not elevated US: neg for dvt Left knee xr: moderate effusion, no drain Differential Diagnosis Cellulitis, wound infection, DVT, sepsis Narrative Course IV access obtained specimens collected and sent for resulting blood cultures and lactic acid obtained patient administered presumptive IV antibiotic vancomycin 1 g Patient resting comfortably remains afebrile Ultrasound pending X-ray of the left knee identifies previous drain has been removed and moderate effusion is noted Ultrasound of the left lower extremity is negative for DVT CBC is automated differential normal white cell count without left shift and lactic acid is 1.0, not elevated Lab values otherwise grossly normal range Patient's case discussed with on-call Dr. French who is covering for patient's orthopedist Dr. hummel is aware of patient's presentation states she has spoken with the patient earlier today regarding the swelling that has not changed since this morning mild redness and warmth is noted to the knee on the medial aspect also x-ray identified a moderate effusion and drain has been removed also no DVT white cell count is normal by CBC with automated differential and lactic acid is not elevated at 1.0; patient's temperature was 99.3F when he originally arrived with a heart rate of 110 and then temp of 99.6 F with heart rate of 90; currently heart rate is 85 and is afebrile at 98.6 F. This is also shared with on-call orthopedist to states patient is stable to be discharged to home on Keflex and of course will require admission should he develop a fever. This information has been shared with the patient and spouse at bedside. Patient and spouse are comfortable with being discharged to home as noted desirous of being discharged home however they have been informed should he develop a fever or increased swelling or redness or any concerns he should return to the emergency department and patient will require admission at that time. Physician Communication Physician Communication call placed to Dr hummel --discussed with Dr French --recommends trial oral antibiotic Keflex --recheck if any concerns--will require admission if develops fever. Diagnosis Primary Impression: Knee effusion, left Referrals: David Hummel MD 2 days Patient Instructions: General Instructions Additional Instructions: Monitor temperature every 4 hours with thermometer take as needed acetaminophen/ Tylenol every 4 hours for fever 100.4F or greater May take as tolerated ibuprofen/Advil/Motrin 600 mg as often as every 6 hours as needed for fever 100.4F or greater Complete course of antibiotic as prescribed Follow-up with the orthopedic surgeon on Saturday call office to schedule follow- up appointment; may contact on-call orthopedist as needed Dr. French Return the emergency department for any concerns or change in condition redness warmth fever chills weakness or any change in condition Continue chronic medications as chronically prescribed Elevate left lower extremity Apply ice intermittently to left knee Med/Other Pt SpecificInfo: Prescription(s) given Scripts Sulfamethoxazole-Trimethoprim (Bactrim DS) 800-160 Mg Tab 1 TAB PO BID for Infection, #14 TAB 0 Refills Prov: Jelly Calhoun MD 08/18/17 Cephalexin (Keflex) 500 Mg Cap 500 MG PO Q6H for Infection, #28 CAP 0 Refills Prov: Jelly Calhoun MD 08/18/17 Disposition: 01 DISCHARGE HOME Condition: Stable Jelly Calhoun MD Aug 17, 2017 22:10
[2017-08-17] MEDS ORDERED: VANCOMYCIN INJ 1,000 MG in SODIUM CHLOR 0.9% 250 ML INJ 250 ML IV ONE (22:15)
[2017-08-17] MEDS ORDERED: SODIUM CHLORID 0.9% 500 ML INJ 500 ML IV ONE ×2 (22:15)
[2017-08-17 22:26] LABS: AUTOMATED NEUTROPHIL # 5.9 TH/MM3 (1.8-7.7); BASOPHIL % 0.6 % (0.0-2.0); EOSINOPHIL # 0.2 TH/MM3 (0-0.4); EOSINOPHIL % 2.8 % (0.0-4.0); HEMATOCRIT 34.8 % (39.0-51.0); HEMOGLOBIN 11.3 GM/DL (13.0-17.0); LYMPH % 13.2 % (9.0-44.0); MEAN CELL VOLUME 86.9 FL (80.0-100.0); MEAN CORPUSCULAR HEMOGLOBIN 28.1 PG (27.0-34.0); MEAN CORPUSCULAR HGB CONC 32.3 % (32.0-36.0); MEAN PLATELET VOLUME 7.9 FL (7.0-11.0); MONO % 8.9 % (0.0-8.0); MONOCYTE # 0.7 TH/MM3 (0-0.9); NEUT % 74.5 % (16.0-70.0); PLATELET COUNT 182 TH/MM3 (150-450); RED BLOOD COUNT 4.01 MIL/MM3 (4.50-5.90); RED CELL DISTRIBUTION WIDTH 13.9 % (11.6-17.2); WHITE BLOOD COUNT 7.8 TH/MM3 (4.0-11.0)
[2017-08-17 22:35] VITALS: BP 101/61; PULSE 90; O2SAT 95
[2017-08-17 22:37] LABS: BICARBONATE 27.5 MEQ/L (21.0-32.0); CALCIUM 7.5 MG/DL (8.5-10.1); MAGNESIUM 2.1 MG/DL (1.5-2.5)
[2017-08-17 22:38] VITALS: O2SAT 96
[2017-08-17 22:40] LABS: PROTHROMBIN TIME - PATIENT 10.2 SEC (9.8-11.6)
[2017-08-17 22:41] LABS: CREATININE 0.83 MG/DL (0.60-1.30)
--- NOTE | 2017-08-17 23:10 | RADRPT ---
EXAM DATE/TIME: 08/17/2017 22:16 [facility] COMPARISON: KNEE LEFT LTD (1 OR 2VWS), August 14, 2017, 9:34. INDICATIONS : Total knee replaced 08/14/2017- Swelling and pain. MEDICAL HISTORY : None. SURGICAL HISTORY : Knee replacement. ENCOUNTER: Initial ACUITY: 1 day PAIN SCORE: 3/10 LOCATION: Left Knee. FINDINGS: Postoperative left total knee replacement. Normal alignment. Previous drain has been removed. There i s a small to moderate-sized knee joint effusion. CONCLUSION: 1. Previous recent left knee replacement. Drain has been removed. There is a moderate sized knee join t effusion. Jarrod Sood MD on August 17, 2017 at 23:06 Board Certified Radiologist. This report was verified electronically.
--- NOTE | 2017-08-18 00:20 | RADRPT ---
EXAM DATE/TIME: 08/17/2017 23:01 [facility] COMPARISON: No previous studies available for comparison. INDICATIONS : Left leg swelling. MEDICAL HISTORY : Hypercholesterolemia. Benign prostatic hyperplasia, (BPH) Glasses. Atrial fibrillation. Anticoagu lant therapy. Hyperlipidemia. Chest pain. Renal disease. Arthritis. SURGICAL HISTORY : Tonsillectomy. CABG Arthroscopy. Right hand surgery. ENCOUNTER: Initial ACUITY: 3 days PAIN SCORE: 3/10 LOCATION: Left leg. TECHNIQUE: Venous ultrasound of the leg was performed from the inguinal ligament to the proximal calf. Real-rosa e, color Doppler and spectral tracing, compression and augmentation techniques were used. FINDINGS: There is normal compressibility of the deep venous system from the inguinal region to the proximal ca lf. No echogenic clot is seen in the lumen of the common femoral, femoral, popliteal, and posterior tibial veins. There is a normal response of the venous system to proximal and distal augmentation an d respiration. CONCLUSION: Negative exam. No sonographic or Doppler findings of deep venous thrombosis. Camacho Mccabe MD on August 18, 2017 at 0:18 Board Certified Radiologist. This report was verified electronically.
[2017-08-18] MEDS ORDERED: CEPH-460 PO (00:58)
[2017-08-18] MEDS ORDERED: BACT800T5 PO (00:58)
[2017-08-18 01:06] VITALS: BP 103/56
== END 2017-08-18 01:18 | disposition home or self-care (01) ==
LOC: PHEFT 21:21
DX: M25.462 Effusion, left knee (principal); R50.9 Fever, unspecified; I48.91 Unspecified atrial fibrillation; I25.10 Atherosclerotic heart disease of native coronary artery without angina pectoris; N40.0 Benign prostatic hyperplasia without lower urinary tract symptoms; E78.5 Hyperlipidemia, unspecified; Z98.890 Other specified postprocedural states; Z79.82 Long term (current) use of aspirin; Z87.39 Personal history of other diseases of the musculoskeletal system and connective tissue
CPT/HCPCS: 73560; 80048; 83605; 83735; 85025; 85610; 85730; 87040; 93971; 96365; 99285; J3370; J7040; J7050